=== PATIENT | female | born 1930 | race Caucasian/White ===

== ENCOUNTER 2016-12-04 14:59 | Inpatient (IN) | payer OTHER ==
--- NOTE | 2016-12-04 15:37 | CPEKG ---
Heart Rate: 68 RR Interval: 882 QRSD Interval: 88 QT Interval: 416 QTC Interval: 443 QRS [place]: 76 T Wave [place]: 34 EKG Severity - ABNORMAL ECG - EKG Impression: ATRIAL FIBRILLATION EKG Impression: PROBABLE LEFT VENTRICULAR HYPERTROPHY Electronically Signed By: Darian Pickering 04-Dec-2016 15:44:53
[2016-12-04] MEDS ORDERED: NS 500 ML IV ONE (15:40)
--- NOTE | 2016-12-04 15:44 | EDPHY ---
H & P Stated Complaint: afib Time Seen by Provider: 12/04/16 15:29 HPI/ROS: CHIEF COMPLAINT: Lightheaded HISTORY OF PRESENT ILLNESS: The patient is an 86-year-old female who comes with her daughter to the emergency department complaining of lightheadedness and feeling clammy and short of breath and dizzy when walking. The symptoms began this morning. She went to see her primary doctor pain who found her to be in atrial fibrillation and sent her to the emergency department. This is a new diagnosis. She does have a history of high blood pressure and takes diltiazem 3 times a day. She also has a history of hypertrophic cardiomyopathy , mitral valve insufficiency and asthma. She has never had any cardiac procedures. She has never had any coronary artery disease cancer or stroke. She denies chest pain or palpitations. REVIEW OF SYSTEMS: Constitutional: denies: chills, fever, recent illness, recent injury EENTM: denies: blurred vision, double vision, nose congestion Respiratory: denies: cough, shortness of breath Cardiac: Lightheaded, denies: chest pain, palpitations Gastrointestinal/Abdominal: denies: abdominal pain, diarrhea, nausea, vomiting, blood streaked stools Genitourinary: denies: dysuria, frequency, hematuria, pain Musculoskeletal: denies: joint pain, muscle pain Skin: denies: lesions, rash, jaundice, bruising Neurological: denies: headache, numbness, paresthesia, tingling, dizziness, weakness Hematologic/Lymphatic: denies: blood clots, easy bleeding, easy bruising Immunologic/allergic: denies: HIV/AIDS, transplant EXAM: GENERAL: Well-appearing, well-nourished and in no acute distress. HEAD: Atraumatic, normocephalic. EYES: Pupils equal round and reactive to light, extraocular movements intact, sclera anicteric, conjunctiva are normal. ENT: TMs normal, nares patent, oropharynx clear without exudates. Moist mucous membranes. NECK: Normal range of motion, supple without lymphadenopathy or JVD. LUNGS: Breath sounds clear to auscultation bilaterally and equal. No wheezes rales or rhonchi. HEART: Irregular heartbeat with loud murmur. ABDOMEN: Soft, nontender, normoactive bowel sounds. No guarding, no rebound. No masses appreciated. BACK: No CVA tenderness, no spinal tenderness, step-offs or deformities EXTREMITIES: Normal range of motion, no pitting or edema. No clubbing or cyanosis. NEUROLOGICAL: Cranial nerves II through XII grossly intact. Normal speech, normal gait. 5/5 strength, normal movement in all extremities, normal sensation PSYCH: Normal mood, normal affect. SKIN: Warm, dry, normal turgor, no visible rashes or lesions. Source: Patient Exam Limitations: No limitations - Personal History Current Tetanus Diphtheria and Acellular Pertussis (TDAP): Yes - Medical/Surgical History Hx Asthma: Yes Hx Chronic Respiratory Disease: No Hx Diabetes: No Hx Cardiac Disease: No Hx Renal Disease: No Hx Cirrhosis: No Hx Alcoholism: No Hx HIV/AIDS: No Hx Splenectomy or Spleen Trauma: No Other PMH: HYSTERECTOMY/MITRAL VALVE PROLAPSE, asthma, Hypertrophic Cardiomyopathy - Family History Significant Family History: No pertinent family hx - Social History Smoking Status: Never smoked Alcohol Use: None Drug Use: None Constitutional: Initial Vital Signs Temperature (C) 36.3 C 12/04/16 15:10 Heart Rate 73 12/04/16 15:10 Respiratory Rate 16 12/04/16 15:10 Blood Pressure 116/75 12/04/16 15:10 O2 Sat (%) 96 12/04/16 15:10 O2 Delivery Mode Room Air Allergies/Adverse Reactions: No Known Allergies Allergy (Unverified 11/01/15 10:34) Home Medications: Medication Instructions Recorded Fluticasone/Salmeter 250/50Mcg 1 puffs IH BID 08/23/10 [Advair 250/50 (*)] Montelukast Sodium [Singulair 10 10 mg PO DAILY@1800 08/23/10 mg (*)] Albuterol [Proventil Inhaler HFA 1 - 2 puffs IH DAILY PRN 11/01/15 (*)] Diltiazem [Cardizem 60 MG (*)] 60 mg PO BID 11/01/15 Alendronate Sodium [Fosamax 70 MG 70 mg PO SA@0700 12/04/16 (*)] Diltiazem [Cardizem 60 MG (*)] 90 mg PO DAILY@12 12/04/16 Herbals/Supplements -Info Only 1 ea PO DAILY 12/04/16 [place]-3 Fatty Acids [Fish Oil 1000 1,000 mg PO DAILY 12/04/16 mg (*)] Medical Decision Making - Diagnostics EKG Interpretation: An EKG obtained and was read and documented in trace view. Please see trace view for full reading and report. Atrial fibrillation rate of 68 LEFT VENTRICULAR HYPERTROPHY Imaging: X-ray: chest x-ray was obtained. I viewed the images myself on the PACS system. My interpretation of the images is: Cardiomegaly, unchanged from previous. The radiologist interpretation is pending. ED Course/Re-evaluation: 5:20 p.m. I discussed the case with Dr. Dereje Fuentes who will consult. Will admit to the hospital service. 5:45 p.m. I discussed the case with Dr. Luisa Archer who will admit to the medical service. Differential Diagnosis: Partial list of the Differential diagnosis considered include but were not limited to; atrial fibrillation, acute coronary disease, PE, infection and although unlikely based on the history and physical exam, I also considered CVA , dehydration, infection. Critical Care Time: Critical care time spent by me, Dr. Pickering exclusive with this patient was 35 minutes, exclusive of the PA time exclusive of procedures. The organ system that was at risk was cardiac/pulmonary and I gave IV fluids and blood thinners and multiple consultations to prevent worsening of the patient's condition - Data Points Laboratory Results: Laboratory Results 12/04/16 15:40 12/04/16 15:40 12/04/16 12/04/16 12/04/16 15:40 15:40 15:40 WBC 6.80 10^3/uL 10^3/uL (3.80-9.50) RBC 4.45 10^6/uL 10^6/uL (4.18-5.33) Hgb 14.0 g/dL g/dL (12.6-16.3) Hct 41.6 % % (38.0-47.0) MCV 93.5 fL fL (81.5-99.8) MCH 31.5 pg pg (27.9-34.1) MCHC 33.7 g/dL g/dL (32.4-36.7) RDW 13.8 % % (11.5-15.2) Plt Count 275 10^3/uL 10^3/uL (150-400) MPV 10.2 fL fL (8.7-11.7) Neut % (Auto) 60.0 % % (39.3-74.2) Lymph % (Auto) 27.9 % % (15.0-45.0) [place] % (Auto) 9.0 % % (4.5-13.0) Eos % (Auto) 2.1 % % (0.6-7.6) Baso % (Auto) 0.9 % % (0.3-1.7) Nucleat RBC Rel Count 0.0 % % (0.0-0.2) Absolute Neuts (auto) 4.08 10^3/uL 10^3/uL (1.70-6.50) Absolute Lymphs (auto) 1.90 10^3/uL 10^3/uL (1.00-3.00) Absolute Monos (auto) 0.61 10^3/uL 10^3/uL (0.30-0.80) Absolute Eos (auto) 0.14 10^3/uL 10^3/uL (0.03-0.40) Absolute Basos (auto) 0.06 10^3/uL 10^3/uL (0.02-0.10) Absolute Nucleated RBC 0.00 10^3/uL 10^3/uL (0-0.01) Immature Gran % 0.1 % % (0.0-1.1) Immature Gran # 0.01 10^3/uL 10^3/uL (0.00-0.10) PT 11.9 SEC L SEC (12.0-15.0) INR 0.89 (0.83-1.16) APTT 24.5 SEC SEC (23.0-38.0) D-Dimer 0.98 ug/mLFEU H ug/mLFEU (0.00-0.50) Sodium 134 mEq/L mEq/L (134-144) Potassium 4.2 mEq/L mEq/L (3.5-5.2) Chloride 103 mEq/L mEq/L (97-110) Carbon Dioxide 22 mEq/l mEq/l (22-31) Anion Gap 9 mEq/L mEq/L (8-16) BUN 14 mg/dL mg/dL (7-23) Creatinine 0.5 mg/dL L mg/dL (0.6-1.0) Estimated GFR > 60 Glucose 87 mg/dL mg/dL (70-100) Calcium 9.7 mg/dL mg/dL (8.5-10.4) Troponin I 0.075 ng/mL H ng/mL (0-0.034) Medications Given: Discontinued Medications Heparin Sodium (Porcine) (Heparin Injection) 0 unit IVP EDNOW ONE PRN Reason: Protocol Stop: 12/04/16 17:14 Last Admin: 12/04/16 17:57 Dose: 3,000 units Sodium Chloride (Ns) 500 mls @ 0 mls/hr IV ONCE ONE PRN Reason: As Directed Stop: 12/04/16 15:41 Last Admin: 12/04/16 17:00 Dose: 500 mls Heparin Sodium (Porcine) (Heparin 50 Units/Ml (Premix)) 500 mls @ 0 mls/hr IV EDNOW ONE; Per Protocol PRN Reason: Protocol Stop: 12/04/16 17:14 Last Admin: 12/04/16 17:45 Dose: 500 mls Departure - Departure Disposition: [facility] Inpatient Acute Clinical Impression: Atrial fibrillation Qualifiers: Atrial fibrillation type: unspecified Qualified Code(s): I48.91 - Unspecified atrial fibrillation Condition: Fair
[2016-12-04 16:00] LABS: % IMMATURE GRANULYOCYTES 0.1 % (0.0-1.1); ABSOLUTE IMMATURE GRANULOCYTES 0.01 10^3/uL (0.00-0.10); ADD DIFF? NO; ADD MORPH? NO; ADD SCAN? NO; ATYPICAL LYMPHOCYTE FLAG 30 (0-99); FRAGMENT RBC FLAG 0 (0-99); HEMATOCRIT 41.6 % (38.0-47.0); LEFT SHIFT FLG 0 (0-99); LIPEMIA HEMOLYSIS FLAG 80 (0-99); MEAN CELL HEMOGLOBIN 31.5 pg (27.9-34.1); MEAN CELL HEMOGLOBIN CONCENTR. 33.7 g/dL (32.4-36.7); MEAN CELL VOLUME 93.5 fL (81.5-99.8); MEAN PLATELET VOLUME 10.2 fL (8.7-11.7); PLATELET CLUMPS FLAG 10 (0-99); PLATELET COUNT 275 10^3/uL (150-400); RED BLOOD CELL COUNT 4.45 10^6/uL (4.18-5.33); RED CELL DISTRIBUTION WIDTH 13.8 % (11.5-15.2)
[2016-12-04 16:04] LABS: INR 0.89 (0.83-1.16); PROTIME(PATIENT) 11.9 SEC (12.0-15.0)
[2016-12-04 16:05] LABS: APTT 24.5 SEC (23.0-38.0)
[2016-12-04 16:08] LABS: ANION GAP 9 mEq/L (8-16); CALCIUM 9.7 mg/dL (8.5-10.4); CARBON DIOXIDE 22 mEq/l (22-31); CHLORIDE 103 mEq/L (97-110); CREATININE 0.5 mg/dL (0.6-1.0); GLOMERULAR FILTRATION RATE > 60; GLUCOSE 87 mg/dL (70-100); POTASSIUM 4.2 mEq/L (3.5-5.2); SODIUM 134 mEq/L (134-144)
[2016-12-04 16:19] LABS: TROPONIN I 0.075 ng/mL (0-0.034)
[2016-12-04] MEDS ORDERED: HEPARIN/DEXTROSE 500 ML IV ONE (17:13)
[2016-12-04] MEDS ORDERED: HEPARIN 10,000 UNIT/10 ML MDV IVP ONE (17:13)
[2016-12-04] MEDS ORDERED: HEPARIN 10,000 UNIT/10 ML MDV IVP PRN (18:07)
[2016-12-04] MEDS ORDERED: ONDANSETRON 4 MG/2 ML VIAL IVP PRN (18:09)
[2016-12-04] MEDS ORDERED: ACETAMINOPHEN 325 MG TAB PO PRN (18:09)
[2016-12-04] MEDS ORDERED: NS 1,000 ML IV SCH (18:15)
[2016-12-04] MEDS ORDERED: ALBUTEROL 60 PUFFS/8 GM MDI IH PRN (18:28)
[2016-12-04] MEDS ORDERED: HEPARIN/DEXTROSE 500 ML IV SCH (18:30)
--- NOTE | 2016-12-04 18:54 | GHP ---
[f rep st] HISTORY AND PHYSICAL DATE OF ADMISSION: 12/04/2016 CHIEF COMPLAINT: Dizziness. HISTORY: The patient is an 86-year-old female who felt very dizzy this morning going to the [facility]. She was weak and clammy. She denies any chest pain or shortness of breath. She saw her primary care doctor complaining of these issues. She attributes it to getting over a cold which has caused extreme coughing fits. Primary care doctor did an EKG, found her to be in new onset atrial fibrill ation and sent her to the emergency room. She is currently feeling quite well. PAST MEDICAL HISTORY: 1. Hypertrophic cardiomyopathy, following with Dr. Gray. 2. Asthma. 3. Mitral regurgitation. PAST SURGICAL HISTORY: Hysterectomy. MEDICATIONS: Please see computer record for full detailed list. ALLERGIES: No known drug allergies. SOCIAL HISTORY: No smoking. No alcohol. She lives alone. REVIEW OF SYSTEMS: Complete review of systems obtained. Review of systems negative regarding const itutional, HEENT, GI, pulmonary, cardiovascular, , hematology, skin, musculoskeletal, endocrine an d psychiatric, except for positives as noted in HPI. FAMILY HISTORY: She denies a known family history of hypertrophic cardiomyopathy or sudden cardiac . PHYSICAL EXAMINATION: GENERAL: Well-developed, well-nourished female in no acute distress. VITAL SIGNS: Temperature is 36.3, pulse 83, blood pressure 109/70, saturating 95% on room air. EYES: No rmal conjunctivae. Pupils equal and reactive to light. ENT: Normal ears and nose. Hearing intact . Normal lips and teeth. Oropharynx moist. NECK: Trachea midline. No thyromegaly. CHEST: Norm al respiratory effort. LUNGS: Clear to auscultation bilaterally. CARDIOVASCULAR SYSTEMS: Irregul bree irregular with murmur at the apex. No lower extremity edema. ABDOMEN: Soft, nontender. No h epatosplenomegaly. SKIN: Warm, dry, intact without rash. MUSCULOSKELETAL: No cyanosis or clubbin g. Strength 5/5 upper and lower extremities. NEUROLOGIC: Cranial nerves intact. Normal sensation to light touch. PSYCH: Alert and oriented x3. Normal mood and affect. Normal judgment and insig ht. Normal memory. LABS: White count 6.8, hematocrit 41.6, platelets 275. Sodium 139, potassium 4.2, chloride 103, bi carb 22, BUN 14, creatinine 0.5, glucose 87. Troponin 0.075. Chest x-ray is negative. EKG shows a trial flutter with LVH with a normal rate. This case was discussed with Dr. Pickering. He has spoken to Dr. Fuentes. They will consult in the morning. ASSESSMENT/PLAN: 1. New onset atrial fibrillation. She does not have any rapid rates as she is on oral diltiazem ch ronically for blood pressure control. She does have new symptoms, however, so I query whether this atrial fibrillation may be symptomatic despite the controlled rate and cardioversion could be consid ered. We will start her on IV heparin. Cardiology will see her in the morning. 2. Hypertrophic cardiomyopathy. I will recheck an echocardiogram. 3. Troponin elevation. We will follow serial troponins. Perhaps coronary ischemia could cause her new symptoms. We will check a lipid panel in the morning. We will make her n.p.o. after midnight and await Cardiology evaluation in the morning regarding whether they want to do anything regarding an ischemic evaluation. We will also check a D-dimer and rule out pulmonary embolus if positive. 4. Asthma. This is stable. We will continue Advair. CODE STATUS: Full. ADMISSION STATUS: We will admit to observation, as depending on clinical course she might be able g o home tomorrow. DVT PROPHYLAXIS: She is high risk, we will place on subcu Lovenox. /[id number]/MODL
[2016-12-04] MEDS: FLUTICASONE/SALMETER 250/50MCG DISKUS IH SCH (20:29)
[2016-12-04] MEDS: DILTIAZEM 60 MG TAB PO SCH (20:54)
[2016-12-05 06:52] LABS: % IMMATURE GRANULYOCYTES 0.5 % (0.0-1.1); ABSOLUTE IMMATURE GRANULOCYTES 0.03 10^3/uL (0.00-0.10); ADD DIFF? NO; ADD MORPH? NO; ADD SCAN? NO; ATYPICAL LYMPHOCYTE FLAG 30 (0-99); FRAGMENT RBC FLAG 0 (0-99); HEMATOCRIT 36.7 % (38.0-47.0); HEMOGLOBIN 12.6 g/dL (12.6-16.3); LEFT SHIFT FLG 0 (0-99); LIPEMIA HEMOLYSIS FLAG 90 (0-99); MEAN CELL HEMOGLOBIN 31.5 pg (27.9-34.1); MEAN CELL HEMOGLOBIN CONCENTR. 34.3 g/dL (32.4-36.7); MEAN CELL VOLUME 91.8 fL (81.5-99.8); MEAN PLATELET VOLUME 10.4 fL (8.7-11.7); PLATELET CLUMPS FLAG 10 (0-99); PLATELET COUNT 247 10^3/uL (150-400); RED CELL DISTRIBUTION WIDTH 13.8 % (11.5-15.2)
[2016-12-05 07:02] LABS: ANION GAP 7 mEq/L (8-16); CALCIUM 7.8 mg/dL (8.5-10.4); CARBON DIOXIDE 24 mEq/l (22-31); CHLORIDE 108 mEq/L (97-110); CHOLESTEROL 148 mg/dL (140-220); CHOLESTEROL/HDL RATIO 2.79 RATIO (1.00-4.44); CREATININE 0.6 mg/dL (0.6-1.0); GLOMERULAR FILTRATION RATE > 60; GLUCOSE 84 mg/dL (70-100); HIGH DENSITY LIPOPROTEIN 53 mg/dL (40-85); LOW DENSITY LIPOPROTEIN 85 mg/dL (80-100); NON-HIGH DENSITY LIPOPROTEIN 95 mg/dL (90-129); POTASSIUM 3.7 mEq/L (3.5-5.2); SODIUM 139 mEq/L (134-144); TRIGLYCERIDE 53 mg/dL (35-135); VERY LOW DENSITY LIPOPROTEINS 10 mg/dL (8-25)
[2016-12-05 07:12] LABS: TROPONIN I 0.045 ng/mL (0-0.034)
--- NOTE | 2016-12-05 08:54 | CPEKG ---
Heart Rate: 70 RR Interval: 857 QRSD Interval: 82 QT Interval: 388 QTC Interval: 419 QRS [place]: 68 EKG Severity - ABNORMAL ECG - EKG Impression: ATRIAL FIBRILLATION EKG Impression: LOW VOLTAGE IN FRONTAL LEADS EKG Impression: CONSIDER LEFT VENTRICULAR HYPERTROPHY EKG Impression: BORDERLINE T ABNORMALITIES, DIFFUSE LEADS EKG Impression: No significant change from December 04, 2016 Electronically Signed By: Bharath Alexandra 05-Dec-2016 12:25:49
[2016-12-05] MEDS ORDERED: ENOXAPARIN 40 MG/0.4 ML SYR SC SCH (09:00)
[2016-12-05] MEDS: FLUTICASONE/SALMETER 250/50MCG DISKUS IH SCH ×2 (09:39→21:43)
[2016-12-05] MEDS: ASPIRIN EC 81 MG TAB PO SCH (09:50)
[2016-12-05] MEDS: DILTIAZEM 60 MG TAB PO SCH ×3 (09:50→21:41)
--- NOTE | 2016-12-05 10:22 | PDCARCONS ---
Cardiology Consult Reason for Consult: new onset atrial fibrillation Chief Complaint: feeling yucky Requesting Physician: Gianni History of Present Illness: 86-year-old female followed by my practice history of hypertrophic cardiomyopathy with mitral regurgitation admitted with 1st onset of atrial fibrillation. Patient was in her usual state of good health until about 2 weeks ago. She had a cold characterized by a cough productive of clear /yellow sputum. She was diagnosed with a bronchitic attack. She was seen by her daughter and looked cold clammy and in poor health. She was taken to Dr. Ochoa office. Clinical examination they revealed new onset of atrial fibrillation and she is brought to the hospital for further evaluation This morning she is feeling okay. She continues to have a chronic cough. She is having no palpitations. She has had no syncope or near syncope. She denies chest pain PND orthopnea. Patient has had longstanding hypertension which has been well managed with diltiazem. Last assessment of her hypertrophic disease in the computer was in 2009 at that time she had severe mitral regurgitation moderate tricuspid regurgitation with borderline pulmonary artery pressures. She had outflow tract gradient of 50 mm of mercury. She has had no clinical heart failure. She has had no ischemic events. She denies prior history of atrial fibrillation. Ambulatory Orders Fluticasone/Salmeter 250/50Mcg [Advair 250/50 (*)] 1 puffs IH BID 08/23/10 Montelukast Sodium [Singulair 10 mg (*)] 10 mg PO DAILY@1800 08/23/10 Albuterol [Proventil Inhaler HFA (*)] 1 - 2 puffs IH DAILY PRN 11/01/15 Diltiazem [Cardizem 60 MG (*)] 60 mg PO BID 11/01/15 Alendronate Sodium [Fosamax 70 MG (*)] 70 mg PO SA@0700 12/04/16 Diltiazem [Cardizem 60 MG (*)] 90 mg PO DAILY@12 12/04/16 Herbals/Supplements -Info Only 1 ea PO DAILY 12/04/16 [place]-3 Fatty Acids [Fish Oil 1000 mg (*)] 1,000 mg PO DAILY 12/04/16 History Information - Allergies/Home Medication List Allergies/Adverse Reactions: No Known Allergies Allergy (Unverified 11/01/15 10:34) Home Medications: Fluticasone/Salmeter 250/50Mcg [Advair 250/50 (*)] 1 puffs IH BID 08/23/10 [ Last Taken 12/03/16] Montelukast Sodium [Singulair 10 mg (*)] 10 mg PO DAILY@1800 08/23/10 [Last Taken 12/03/16] Albuterol [Proventil Inhaler HFA (*)] 1 - 2 puffs IH DAILY PRN 11/01/15 [Last Taken Unknown] Diltiazem [Cardizem 60 MG (*)] 60 mg PO BID 11/01/15 [Last Taken 12/04/16 09:00] Alendronate Sodium [Fosamax 70 MG (*)] 70 mg PO SA@0700 12/04/16 [Last Taken ] Diltiazem [Cardizem 60 MG (*)] 90 mg PO DAILY@12 12/04/16 [Last Taken 12/04/16] Herbals/Supplements -Info Only 1 ea PO DAILY 12/04/16 [Last Taken Unknown] [place]-3 Fatty Acids [Fish Oil 1000 mg (*)] 1,000 mg PO DAILY 12/04/16 [Last Taken Unknown] I have personally reviewed and updated: family history, medical history, social history, surgical history - Surgical History Reports: hysterectomy - Family History Positive for: non-pertinent (She has 9 children. 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 She continues to drive and live independently.) - Social History Smoking Status: Never smoked Alcohol Use: None Drug Use: None REED Risk Evaluation greater or equal to 3 CAD risk factors: no known CAD(stenosis greater or eqaul to 50%): no ASA use in past 7 days: no severe angina(greater or equal to 2 episodes in 24hrs): no EKG ST changes greater or equal to 0.5mm: no positive cardiac marker: yes Age in Years: 75 or older Sex: Female Congestive Heart Failure History: No Hypertension History: Yes Stroke/TIA/Thromboembolism History: No Vascular Disease History: No Diabetes Mellitus: No [id number] Score: 5z Physical Exam Temp Pulse Resp BP Pulse Ox 36.9 C 67 18 138/94 H 93 12/05/16 08:00 12/05/16 08:00 12/05/16 09:40 12/05/16 08:00 12/05/16 08:00 Constitutional: no apparent distress, cachectic Eyes: PERRL, anicteric sclera Ears, Nose, Mouth, Throat: moist mucous membranes, hearing normal Cardiovascular: systolic murmur, irregularly irregular, edema Peripheral Pulses: 1+: carotid (R), carotid (L), 2+: femoral (R), femoral (L) Respiratory: reduced air movement, expiratory wheeze, rhonchi Gastrointestinal: normoactive bowel sounds, soft, non-tender abdomen, no palpable masses Genitourinary: no bladder fullness Skin: warm Musculoskeletal: full muscle strength, no muscle tenderness Neurologic: AAOx3, No weakness Psychiatric: interacting appropriately, not anxious Lymph, Heme, Immunologic: no cervical LAD, no supraclavicular LAD Lab and Imaging 12/05/16 06:30 12/05/16 06:30 WBC 5.89 10^3/uL (3.80-9.50) 12/05/16 06:30 RBC 4.00 10^6/uL (4.18-5.33) L 12/05/16 06:30 Hgb 12.6 g/dL (12.6-16.3) 12/05/16 06:30 Hct 36.7 % (38.0-47.0) L 12/05/16 06:30 MCV 91.8 fL (81.5-99.8) 12/05/16 06:30 MCH 31.5 pg (27.9-34.1) 12/05/16 06:30 MCHC 34.3 g/dL (32.4-36.7) 12/05/16 06:30 RDW 13.8 % (11.5-15.2) 12/05/16 06:30 Plt Count 247 10^3/uL (150-400) 12/05/16 06:30 MPV 10.4 fL (8.7-11.7) 12/05/16 06:30 Neut % (Auto) 54.6 % (39.3-74.2) 12/05/16 06:30 Lymph % (Auto) 31.1 % (15.0-45.0) 12/05/16 06:30 [place] % (Auto) 9.8 % (4.5-13.0) 12/05/16 06:30 Eos % (Auto) 3.2 % (0.6-7.6) 12/05/16 06:30 Baso % (Auto) 0.8 % (0.3-1.7) 12/05/16 06:30 Nucleat RBC Rel Count 0.0 % (0.0-0.2) 12/05/16 06:30 Absolute Neuts (auto) 3.21 10^3/uL (1.70-6.50) 12/05/16 06:30 Absolute Lymphs (auto) 1.83 10^3/uL (1.00-3.00) 12/05/16 06:30 Absolute Monos (auto) 0.58 10^3/uL (0.30-0.80) 12/05/16 06:30 Absolute Eos (auto) 0.19 10^3/uL (0.03-0.40) 12/05/16 06:30 Absolute Basos (auto) 0.05 10^3/uL (0.02-0.10) 12/05/16 06:30 Absolute Nucleated RBC 0.00 10^3/uL (0-0.01) 12/05/16 06:30 Immature Gran % 0.5 % (0.0-1.1) 12/05/16 06:30 Immature Gran # 0.03 10^3/uL (0.00-0.10) 12/05/16 06:30 PT 11.9 SEC (12.0-15.0) L 12/04/16 15:40 INR 0.89 (0.83-1.16) 12/04/16 15:40 APTT 24.5 SEC (23.0-38.0) 12/04/16 15:40 D-Dimer 0.98 ug/mLFEU (0.00-0.50) H 12/04/16 15:40 Heparin Anti-Xa, Unfract 0.51 IU/mL (0.32-0.67) 12/05/16 06:30 Sodium 139 mEq/L (134-144) 12/05/16 06:30 Potassium 3.7 mEq/L (3.5-5.2) 12/05/16 06:30 Chloride 108 mEq/L (97-110) 12/05/16 06:30 Carbon Dioxide 24 mEq/l (22-31) 12/05/16 06:30 Anion Gap 7 mEq/L (8-16) L 12/05/16 06:30 BUN 11 mg/dL (7-23) 12/05/16 06:30 Creatinine 0.6 mg/dL (0.6-1.0) 12/05/16 06:30 Estimated GFR > 60 12/05/16 06:30 Glucose 84 mg/dL (70-100) 12/05/16 06:30 Calcium 7.8 mg/dL (8.5-10.4) L D 12/05/16 06:30 Troponin I 0.045 ng/mL (0-0.034) H 12/05/16 06:30 Triglycerides 53 mg/dL (35-135) 12/05/16 06:30 Cholesterol 148 mg/dL (140-220) 12/05/16 06:30 Cholesterol Risk Factr 0.5 (0.2-1.0) 12/05/16 06:30 LDL Cholesterol, Calc 85 mg/dL (80-100) 12/05/16 06:30 LDL Risk Factor 0.6 (0.2-1.0) 12/05/16 06:30 VLDL Cholesterol 10 mg/dL (8-25) 12/05/16 06:30 Non-HDL Cholesterol 95 mg/dL (90-129) 12/05/16 06:30 HDL Cholesterol 53 mg/dL (40-85) 12/05/16 06:30 LDL/HDL Ratio 1.60 RATIO (1.00-3.22) 12/05/16 06:30 Cholesterol/HDL Ratio 2.79 RATIO (1.00-4.44) 12/05/16 06:30 TSH 2.530 uIU/mL (0.465-4.680) 12/05/16 06:30 Laboratory Tests 12/04/16 12/05/16 12/05/16 15:40 00:00 06:30 Creatinine 0.5 L 0.6 Troponin I 0.075 H 0.045 H 0.045 H TSH 2.530 Visualized and Interpreted Chest x-ray results: Yes Chest X-ray Interpretation: no infiltrate, normal heart size Visualized and Interpreted EKG results: Yes EKG additional interpertation: Atrial fibrillation with controlled ventricular response. No acute ST-T changes concerning for ischemia A/P Assessment: impression: 86-year-old female with new onset atrial fibrillation in the setting of known significant valvular heart disease characterized by severe mitral regurgitation outflow tract gradient and atrial enlargement. This is associated with a slight elevation in troponin. There are no EKG changes concerning for an acute ischemic event. Thyroid status is normal. Recent viral bronchitis likely etiology of atrial fibrillation in the setting of known valvular heart disease and hypertension. Based on age patient also has underlying CAD. At the present time she is tolerating it well without chest pain, syncope, near syncope. Plan: 1. High risk for CVA in the setting of atrial fibrillation. Aggressive anticoagulation. Would begin novel agent Eliquis 5 mg p. o. twice daily. 2. Currently rate controlled on diltiazem. 3. Allow 48 hours for spontaneous cardioversion. 4. Discuss options for further evaluation including right left heart catheterization and ALIE with consideration for surgical repair versus continued watchful waiting. No indication for ALIE cardioversion at this time. Based on age and other comorbidities would favor conservative approach with anticoagulation for at least 3 weeks before active cardioversion. Past Medical History - Personal History Current Tetanus Diphtheria and Acellular Pertussis (TDAP): Yes - Medical/Surgical History Hx Asthma: Yes Hx Chronic Respiratory Disease: No Hx Cardiac Disease: No Hx Diabetes: No Hx Renal Disease: No Hx Alcoholism: No Hx Cirrhosis: No Hx HIV/AIDS: No Hx Splenectomy or Spleen Trauma: No Other PMH: HYSTERECTOMY/MITRAL VALVE PROLAPSE, asthma, Hypertrophic Cardiomyopathy - Family History Significant Family History: No pertinent family hx - Social History Smoking Status: Never smoked Review of Systems - Review of Systems Constitutional: malaise, weakness. denies: chills, fever EENTM: no symptoms reported Respiratory: cough Cardiac: edema. denies: chest pain, irregular heart rate, lightheadedness, palpitations, syncope Gastrointestinal/Abdominal: no symptoms reported Genitourinary: no symptoms Musculoskelatal: no symptoms Skin: no symptoms Hematologic/Lymphatic: no symptoms reported Immunologic/allergic: no symptoms reported
--- NOTE | 2016-12-05 10:43 | ECHO ---
[id number] + + [address] : : [place] [address] : : [phone] + Adult Echocardiographic Report + -------+ :Name: PHYLLIS MUÑOZ DStudy Date: 12/05/2016 07:36 AM : : Hospital Admission Number: [id number] Locati on: 216: :: 1930 Gender: Female Height: 64 in : :Age: 86 yrs Race: WH Weight: 110 lb : :Reason For Study: Atrial flutter : : BSA: 1.5 meter s2 : + -------+ MMode/2D Measurements \T\ Calculations IVSd: 1.5 cm LVIDd: 3.7 cm FS: 44.1 % MV Diam: 3.5 cm LVPWd: 0.95 cm LVIDs: 2.1 cm EDV(Teich): 57.2 ml ESV(Teich): 13.6 ml EF(Teich): 76.2 % Ao root diam: LVOT diam: 1.9 cmLVLd ap4: 5.9 cm SV(MOD-sp4): 3.3 cm LVOT area: EDV(MOD-sp4): 28.0 ml LA dimension: 2.9 cm2 37.0 ml 3.8 cm LVLs ap4: 4.6 cm ESV(MOD-sp4): 9.0 ml EF(MOD-sp4): 75.7 % Normal Measurement Values: + + :LVIDd (3.5-5.7cm) IVSd (0.6-1.1cm) LVPWd (0.6-1.1cm) Aortic Root (2.0-3.7cm)Left Atrium (1.5-4.0cm): :LV Vol(d) (76-115ml) LV Vol(s) (29-48ml) Ejec Fraction (50-65%)PV Kendall (0.6- 1.2m/s) TV Kendall (0.4-1.0m/s) : :MV E Kendall (0.8-1.0m/s)MV A Kendall (0.3-1.0m/s)LVOT Kendall (0.7-1.2m/s) Asc Ao Kendall ( 0.9-1.8m/s) : + + Doppler Measurements \T\ Calculations MV E max kendall: MV V2 mean: Ao mean PG: MR max kendall: 111.1 cm/sec 61.6 cm/sec 8.9 mmHg 287.8 cm/sec MV mean P.9 mmHgAo V2 mean: MR max PG: MV V2 VTI: 22.3 cm 142.2 cm/sec 63.8 mmHg MV area (1 diam): Ao V2 VTI: 36.0 cm 9.7 cm2 MV Flow area(1diam): 9.7 cm2 SV(MV 1 diam): TR max kendall: RF(MV,Ao)(1 diam): 217.2 ml 245.7 cm/sec -0.44 SI(MV 1 diam): TR max P.1 mmHg 143.2 ml/m2 RAP systole: 10.0 mmHg RVSP(TR): 34.1 mmHg Left Ventricle The left ventricle is normal in size. There is moderate asymmetric left ventricular hypertrophy. The left ventricle is hyperdynamic. Ejection Fraction = 70-75%. No regional wall motion abnormalities noted. Right Ventricle The right ventricle is normal in size and function. Atria The left atrium is severely dilated. The right atrium is mild to moderately dilated. The interatrial septum is intact with no evidence for an atrial septal defect. Mitral Valve There is systolic anterior motion of the mitral valve. There is no evidence of mitral valve prolapse. There is no mitral valve stenosis. There is moderate mitral regurgitation. Tricuspid Valve Normal tricuspid valve. There is moderate tricuspid regurgitation. Right ventricular systolic pressure is normal. Aortic Valve The aortic valve is trileaflet. Moderate to severe AV calcification. Mild subvalvular aortic stenosis. Borderline aortic stenosis. Trace aortic regurgitation. Pulmonic Valve The pulmonic valve is normal in structure and function. There is no pulmonic valvular regurgitation. Great Vessels The aortic root is normal size. Pericardium/Pleural There is no pericardial effusion. Conclusion A complete two-dimensional transthoracic echocardiogram was performed (2D, M-mode, Doppler and color flow Doppler). Previous echo done at [facility] 07/24. There is moderate asymmetric left ventricular hypertrophy. The left ventricle is hyperdynamic. Ejection Fraction = 70-75%. The left atrium is severely dilated. The right atrium is mild to moderately dilated. There is systolic anterior motion of the mitral valve. There is moderate mitral regurgitation. There is moderate tricuspid regurgitation. Right ventricular systolic pressure is normal. Moderate to severe AV calcification. Mild subvalvular aortic stenosis. Borderline aortic stenosis. Trace aortic regurgitation. Final Reading Physician: Esha Solo signed on 12/05/2016 10:41 AM Ordering Physician: Luisa Archer Performed By: Taya Fierro RDCS
[2016-12-05] MEDS: APIXABAN 2.5 MG TAB PO SCH ×2 (11:46→21:40)
--- NOTE | 2016-12-05 15:22 | HOSPPROG ---
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 if there could be coronary disease as well At this point the patient does not have acute heart failure, and has not been having any angina symptoms. Her stroke risk is high and anticoagulation is clearly indicated. She does not have previous anticoagulation so trying to perform a electrical cardioversion now would have some increased stroke risk. She is not in heart failure it is very reasonable to anticoagulate her and consider cardioversion if she is not spontaneously cardioverted over 3 weeks or thereabouts. PLANS: -Anurag started -follow her heart rate for stability here -follow lunchroom monitor for any spontaneous cardioversion -will review further with Dr. Fuentes -DVT prophylaxis with full-dose anticoagulation as above SUBJECTIVE: She still feels somewhat weak and tired but is able to get up and walk around. She still has a bit of a cough and is mildly dyspneic. 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, my review: Rate controlled atrial fibrillation Exam: alert oriented skin warm dry color ok no jvd resps not labored lungs clear BSs heart irregular abd soft nondistended nontender, bowel sounds present limbs warm, no edema iv site ok Laboratory data: Troponins are lower but remained in the indeterminate elevation range Other lab stable echocardiogram with moderate MR and TR, severe left atrial dilation but good ejection fraction at 75% Repeat EKG showing rate controlled atrial fibrillation without any definite ischemic changes Objective: Vital Signs Temp Pulse Resp BP Pulse Ox 36.8 C 107 H 18 120/87 H 97 12/05/16 11:48 12/05/16 11:48 12/05/16 11:48 12/05/16 11:48 12/05/16 11:48 Laboratory Results 12/05/16 06:30 12/05/16 06:30 12/04/16 12/05/16 12/06/16 06:59 06:59 06:59 Intake Total 1921 Balance 1921 PT 11.9 SEC (12.0-15.0) L 12/04/16 15:40 INR 0.89 (0.83-1.16) 12/04/16 15:40 ICD10 Worksheet Patient Problems: Problems Problem Status Onset Atrial fibrillation Acute
[2016-12-05] MEDS: MONTELUKAST SODIUM 10 MG TAB PO SCH (18:24)
[2016-12-06] MEDS: ASPIRIN EC 81 MG TAB PO SCH (08:33)
[2016-12-06] MEDS: APIXABAN 2.5 MG TAB PO SCH ×2 (08:33→19:54)
[2016-12-06] MEDS: DILTIAZEM 60 MG TAB PO SCH ×2 (08:33→12:03)
[2016-12-06] MEDS: FLUTICASONE/SALMETER 250/50MCG DISKUS IH SCH ×2 (09:02→21:05)
--- NOTE | 2016-12-06 16:47 | HOSPPROG ---
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 Her stroke risk is high and anticoagulation is clearly indicated. She does not have previous anticoagulation so trying to perform a electrical cardioversion now would have some increased stroke risk. She is not in heart failure it is very reasonable to anticoagulate her and consider cardioversion if she is not spontaneously cardioverted over 3 weeks or thereabouts. In terms of heart rate control with average heart rates to the 1st several hours of today in the 130 range she will need increased rate control medication and she certainly needs a simpler regimen to follow. However will have to be careful as she has had some lower heart rates as well. It is possible that in the end she could need a change to a different medication or even consideration for pacemaker placement. I have reviewed her progress and plans in detail today with Dr. Dereje Fuentes. PLANS: -Anurag started -continue to follow her heart rate for stability here -follow manager monitoring for any spontaneous cardioversion -will change her diltiazem to 90 mg four times daily and consider changing to 240-360 once a day orally depending on her response. We will need to watch for bradycardia which could be an indication for pacemaker or change to a different medicine -DVT prophylaxis with full-dose anticoagulation as above SUBJECTIVE: She still feels somewhat weak and tired but is able to get up and walk around, essentially unchanged from yesterday. Almost no cough now and has no angina or palpitations. She is having what she feels is baseline exertional dyspnea which is mildly debilitating at least. 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, my review: Atrial fibrillation with significant fluctuation and heart rate over time Exam: alert oriented skin warm dry color ok no jvd resps not labored lungs clear BSs heart irregular abd soft nondistended nontender, bowel sounds present limbs warm, no edema iv site ok Laboratory data: Troponins are lower but remained in the indeterminate elevation range Other lab stable echocardiogram with moderate MR and TR, severe left atrial dilation but good ejection fraction at 75% Repeat EKG showing rate controlled atrial fibrillation without any definite ischemic changes Objective: Vital Signs Temp Pulse Resp BP Pulse Ox 36.4 C 61 16 112/73 94 12/06/16 15:30 12/06/16 15:30 12/06/16 15:30 12/06/16 15:30 12/06/16 15:30 12/05/16 12/06/16 12/07/16 06:59 06:59 06:59 Intake Total 1240 610 Balance 1240 610 PT 11.9 SEC (12.0-15.0) L 12/04/16 15:40 INR 0.89 (0.83-1.16) 12/04/16 15:40 ICD10 Worksheet Patient Problems: Problems Problem Status Onset Atrial fibrillation Acute
[2016-12-06] MEDS: DILTIAZEM 30 MG TAB PO SCH (17:27)
[2016-12-06] MEDS: MONTELUKAST SODIUM 10 MG TAB PO SCH (17:28)
[2016-12-07] MEDS: DILTIAZEM 30 MG TAB PO SCH ×3 (00:15→12:52)
[2016-12-07 07:53] VITALS: O2SAT 93
[2016-12-07] MEDS: ASPIRIN EC 81 MG TAB PO SCH (08:11)
[2016-12-07] MEDS: APIXABAN 2.5 MG TAB PO SCH (08:11)
[2016-12-07] MEDS: FLUTICASONE/SALMETER 250/50MCG DISKUS IH SCH (10:03)
[2016-12-07 11:45] VITALS: BP 101/70; PULSE 80; RESP 17; TEMP 98
--- NOTE | 2016-12-07 15:50 | PDIAF ---
- Diagnosis Diagnosis: atrial fibrillation, copd Code Status: Full Code - Medication Management Discharge Medications: Medications to Continue on Transfer Fluticasone/Salmeter 250/50Mcg [Advair 250/50 (*)] 1 puffs IH BID 08/23/10 [ Last Taken 12/03/16] Montelukast Sodium [Singulair 10 mg (*)] 10 mg PO DAILY@1800 08/23/10 [Last Taken 12/03/16] Albuterol [Proventil Inhaler HFA (*)] 1 - 2 puffs IH DAILY PRN 11/01/15 [Last Taken Unknown] Alendronate Sodium [Fosamax 70 MG (*)] 70 mg PO SA@0700 12/04/16 [Last Taken ] Herbals/Supplements -Info Only 1 ea PO DAILY 12/04/16 [Last Taken Unknown] [place]-3 Fatty Acids [Fish Oil 1000 mg (*)] 1,000 mg PO DAILY 12/04/16 [Last Taken Unknown] Apixaban [Eliquis] 2.5 mg PO BID #60 tab 12/07/16 [Last Taken Unknown] Aspirin EC [Aspirin EC 81 mg (*)] 81 mg PO DAILY #0 tab 12/07/16 [Last Taken Unknown] Diltiazem HCl 3 tab PO TID #270 tablet 12/07/16 [Last Taken Unknown] Discharge Medications: Refer to the Discharge Home Medication list for PRN reason. - Orders Services needed: Home Care, Registered Nurse Home Care Face to Face: I certify that this patient was under my care and that I had the required [id number] encounter meeting the encounter requirements on the discharge day. My findings support the fact that the patient is homebound as defined in CMS Chapter 7 Medicare Benefits Manual 30.1.1, The condition of the patient is such that there exists a normal inability to leave home and consequently, leaving home would require a considerable and taxing effort. Diet Recommendation: no restrictions on diet Diet Texture: Regular Texture Diet - Follow Up Care Current Providers and Referrals: James Gray MD [Medical Doctor] -
== END 2016-12-07 15:43 | disposition home health service (06) | DRG 310 ==
LOC: F2W 20:01 → OBSVTOIN 12-05 17:36
PROVIDERS: ADMIT Internal Medicine; ATTEND Internal Medicine
DX: I48.91 Unspecified atrial fibrillation (principal); I42.2 Other hypertrophic cardiomyopathy; I34.0 Nonrheumatic mitral (valve) insufficiency; J45.909 Unspecified asthma, uncomplicated
CPT/HCPCS: 85520-90; 96365; 97161-GP; G0378; G8978-GP-CH; G8979-GP-CH; G8980-GP-CH; J1644

== ENCOUNTER 2016-12-12 13:09 | Observation (INO) | payer OTHER ==
[2016-12-12] MEDS ORDERED: BENZOCAINE UNIT DOSE SPRAY HURRICAINE MM ONE (13:15)
[2016-12-12] MEDS ORDERED: PROPOFOL 200 MG/20 ML VIAL IVP ONE (13:15)
[2016-12-12] MEDS ORDERED: fentaNYL 100 MCG/2 ML INJ IVP ONE (13:15)
[2016-12-12] MEDS ORDERED: MIDAZOLAM 2 MG/2 ML VIAL IVP ONE (13:15)
[2016-12-12] MEDS ORDERED: NS 500 ML IV ONE (13:15)
[2016-12-12] MEDS ORDERED: ETOMIDATE 20 MG/10 ML VIAL IVP ONE (13:15)
--- NOTE | 2016-12-12 13:38 | CPEKG ---
Heart Rate: 68 RR Interval: 882 QRSD Interval: 90 QT Interval: 388 QTC Interval: 413 QRS [place]: 94 T Wave [place]: 226 EKG Severity - ABNORMAL ECG - EKG Impression: A-FLUTTER W/ PREDOM 4:1 AV BLOCK, A-RATE 283 EKG Impression: RIGHT AXIS DEVIATION EKG Impression: CONSIDER LEFT VENTRICULAR HYPERTROPHY EKG Impression: LATERAL INFARCT, AGE INDETERMINATE EKG Impression: BORDERLINE T ABNORMALITIES, INFERIOR LEADS Electronically Signed By: James Joseph 13-Dec-2016 09:00:23
[2016-12-12 14:12] LABS: INR 1.02 (0.83-1.16); PROTIME(PATIENT) 13.3 SEC (12.0-15.0)
[2016-12-12 14:13] LABS: APTT 27.5 SEC (23.0-38.0); CALCIUM 9.1 mg/dL (8.5-10.4); CARBON DIOXIDE 23 mEq/l (22-31); CHLORIDE 106 mEq/L (97-110); CREATININE 0.6 mg/dL (0.6-1.0); GLOMERULAR FILTRATION RATE > 60; GLUCOSE 81 mg/dL (70-100); MAGNESIUM 2.1 mg/dL (1.6-2.3); SODIUM 137 mEq/L (134-144)
[2016-12-12 14:18] LABS: ANION GAP 8 mEq/L (8-16)
[2016-12-12] MEDS ORDERED: PROPOFOL 200 MG/20 ML VIAL ONE ×2 (14:19)
[2016-12-12] MEDS ORDERED: ATROPINE SULFATE 1 MG/10 ML SYR ONE (14:40)
[2016-12-12] MEDS ORDERED: DOPamine/DEXTROSE/250 ML BAG IV ONE (14:43)
[2016-12-12] MEDS ORDERED: EPINEPHrine 1 MG/10 ML SYR IVP ONE (14:49)
[2016-12-12] MEDS ORDERED: ALBUTEROL 60 PUFFS/8 GM MDI IH PRN (17:11)
[2016-12-12] MEDS: MONTELUKAST SODIUM 10 MG TAB PO SCH (18:03)
[2016-12-12] MEDS: APIXABAN 2.5 MG TAB PO SCH (20:41)
[2016-12-12] MEDS: FLUTICASONE/SALMETER 250/50MCG DISKUS IH SCH (22:06)
[2016-12-13] MEDS: MULTIVITAMINS 1 EACH TAB PO SCH (08:02)
[2016-12-13] MEDS: ASPIRIN EC 81 MG TAB PO SCH (08:02)
[2016-12-13] MEDS: VITAMIN B COMPLEX 1 EA CAP/TAB PO SCH (08:02)
[2016-12-13] MEDS: APIXABAN 2.5 MG TAB PO SCH ×2 (08:03→19:58)
[2016-12-13] MEDS: FLUTICASONE/SALMETER 250/50MCG DISKUS IH SCH ×2 (08:03→21:35)
[2016-12-13] MEDS ORDERED: DILTIAZEM CD 120 MG CAP PO ONE (14:00)
--- NOTE | 2016-12-13 15:28 | SOAPPROG ---
[facility] Progress Note Assessment/Plan: 1. PAF - Pt presents with a recent diagnosis of PAF. She was started on a rate control and anticoagulation strategy but was scheduled for ALIE cardioversion secondary to symptoms. ALIE/CV was performed on 12/12/16. Post cardioversion patient was bradycardic with HR in the 30's. ? underlying SSS vs 240 mg of diltiazem. She was temporarily started on dopamine to support her HR. This was weaned off and she has done well overnight. She will likely require diltiazem given her HOCM. Would like to observe patient while this is restarted given risk of SSS. --> Cardizem 120 mg daily. Dose prior to A-fib was 180 mg daily. 2. HTN - Pts BP has increased with DC of diltiazem. Will resume diltiazem as noted above. 3. HOCM - Pt has a HOCM. Her septum is 1.5 to 1.6 cm. No personal or family history of syncope. Pt is not interested in ICD. 12/13/16 15:30 Subjective: No chest pain No orthopnea or PND Fells well No syncope or pre-syncope. HR up to 70's this am. Objective: Vital Signs Temp Pulse Resp BP Pulse Ox 36.6 C 63 17 138/91 H 94 12/13/16 11:47 12/13/16 11:47 12/13/16 11:47 12/13/16 11:47 12/13/16 11:47 Laboratory Results 12/12/16 13:45 12/12/16 12/13/16 12/14/16 05:59 05:59 05:59 Intake Total 200 Output Total 1100 200 Balance -900 -200 PT 13.3 SEC (12.0-15.0) 12/12/16 13:45 INR 1.02 (0.83-1.16) 12/12/16 13:45 Physical Exam - Physical Exam General Appearance: alert, no apparent distress Respiratory: lungs clear Cardiac/Chest: regular rate, rhythm, systolic murmur Abdomen: normal bowel sounds, non-tender, soft Skin: normal color Extremities: No pedal edema Neuro/Psych: alert ICD10 Worksheet Patient Problems: Problems Problem Status Onset Atrial fibrillation Acute
[2016-12-13] MEDS: MONTELUKAST SODIUM 10 MG TAB PO SCH (17:19)
[2016-12-14] MEDS: MULTIVITAMINS 1 EACH TAB PO SCH (08:00)
[2016-12-14] MEDS: ASPIRIN EC 81 MG TAB PO SCH (08:00)
[2016-12-14] MEDS: APIXABAN 2.5 MG TAB PO SCH ×2 (08:00→20:49)
[2016-12-14] MEDS: VITAMIN B COMPLEX 1 EA CAP/TAB PO SCH (08:00)
[2016-12-14] MEDS ORDERED: DILTIAZEM CD 120 MG CAP PO SCH (09:00)
[2016-12-14] MEDS: FLUTICASONE/SALMETER 250/50MCG DISKUS IH SCH ×2 (09:37→20:50)
--- NOTE | 2016-12-14 12:56 | SOAPPROG ---
[facility] Progress Note Assessment/Plan: 1. PAF - Pt presents with a recent diagnosis of PAF. She was started on a rate control and anticoagulation strategy but was scheduled for ALIE cardioversion secondary to symptoms. ALIE/CV was performed on 12/12/16. Post cardioversion patient was bradycardic with HR in the 30's. ? underlying SSS vs 240 mg of diltiazem. She was temporarily started on dopamine to support her HR. On HR increased to the 70s and diltiazem 120 mg started HOCM and elevated BP. Overnight patient was noted to have pauses up to 2.0 seconds. Will DC diltiazem and observe overnight. If HR improves would DC home in am. 2. HTN - BP has increased with DC of diltiazem --> Follow overnight. Consider lisinopril 5 mg daily. 3. HOCM - Pt has a HOCM. Her septum is 1.5 to 1.6 cm. No personal or family history of syncope. Pt is not interested in ICD. Pt may require diltiazem for symptom management. She has not been placed on BB secondary to underlying lung disease. Subjective: No chest pain No syncope or pre-syncope Feels well Objective: Vital Signs Temp Pulse Resp BP Pulse Ox 36.6 C 59 L 18 113/66 90 L 12/14/16 11:59 12/14/16 11:59 12/14/16 11:59 12/14/16 11:59 12/14/16 11:59 Laboratory Results 12/12/16 13:45 12/13/16 12/14/16 12/15/16 05:59 05:59 05:59 Intake Total 200 500 Output Total 1100 1901 Balance -900 -1401 PT 13.3 SEC (12.0-15.0) 12/12/16 13:45 INR 1.02 (0.83-1.16) 12/12/16 13:45 Physical Exam - Physical Exam General Appearance: alert, no apparent distress Respiratory: lungs clear Cardiac/Chest: regular rate, rhythm, systolic murmur Abdomen: normal bowel sounds, non-tender, soft Skin: normal color Extremities: No pedal edema Neuro/Psych: alert ICD10 Worksheet Patient Problems: Problems Problem Status Onset Atrial fibrillation Acute
[2016-12-14] MEDS: MONTELUKAST SODIUM 10 MG TAB PO SCH (17:33)
[2016-12-15 03:46] VITALS: O2SAT 92
[2016-12-15] MEDS ORDERED: ALENDRONATE SODIUM 70 MG TAB PO SCH (07:00)
[2016-12-15] MEDS: FLUTICASONE/SALMETER 250/50MCG DISKUS IH SCH (08:39)
[2016-12-15] MEDS: ASPIRIN EC 81 MG TAB PO SCH (08:59)
[2016-12-15] MEDS: MULTIVITAMINS 1 EACH TAB PO SCH (08:59)
[2016-12-15] MEDS: APIXABAN 2.5 MG TAB PO SCH (08:59)
[2016-12-15] MEDS: VITAMIN B COMPLEX 1 EA CAP/TAB PO SCH (08:59)
[2016-12-15] MEDS ORDERED: LISINOPRIL 5 MG TAB PO SCH (09:00)
[2016-12-15 09:03] VITALS: TEMP 97.6
[2016-12-15 10:36] VITALS: BP 159/100
--- NOTE | 2016-12-15 11:55 | GDS ---
[f rep st] DISCHARGE SUMMARY ADMISSION DIAGNOSES: 1. Paroxysmal atrial fibrillation. 2. Hypertrophic obstructive cardiomyopathy. 3. Asthma. DISCHARGE DIAGNOSES: 1. Paroxysmal atrial fibrillation, status post cardioversion. 2. Cardiac sinus pause. 3. Hypertrophic obstructive cardiomyopathy. 4. Asthma. PROCEDURES DONE DURING HOSPITALIZATION: 1. ALIE. 2. Cardioversion. 3. Electrocardiogram. BRIEF HISTORY: Please see H and P: Mrs. Voss is an 86-year-old female with recently new diagnos is of atrial fibrillation. She had been seen in our office by SHEILA Krishnan, and felt to be an appropriate candidate to undergo ALIE cardioversion. This was set up for her to have done in the [facility] . HOSPITAL COURSE: Patient was admitted to [facility] and prepped for procedure there. Dr. Gray performed a ALIE on patient under sedation with anesthesia, no thrombus noted in atrium, proceeded onto cardio version, with successful conversion out of atrial fibrillation. Unfortunately, the patient was yaw ycardic post cardioversion with heart rates in the 30s. She was also mildly hypotensive, she was st arted on dopamine to support her heart rate and blood pressure. She was admitted to the PCU for ove rnight observation. Throughout the night from the to the 5th, she had been doing well, eventual ly titrating the dobutamine off. It was decided to restart her on diltiazem on the , unfortunate ly throughout the evening, she was noted to have significant pauses up to 2 seconds. On the , th e diltiazem has been discontinued. She had been monitored throughout the evening and today, a rema nuous cardiac monitoring, and she has had no further significant pauses. Unfortunately, her blood p ressure has been increased. We have recently started her on lisinopril 5 mg p.o. daily. Throughout her hospitalization, she has never had any episodes of chest pressure, no other malignant arrhythmi as noted. She has remained in sinus rhythm since cardioversion. She denies any chest pressure or p ain. She has been up and walking in the unit without any symptoms of lightheadedness, near-syncope, or syncopal events. PHYSICAL EXAMINATION: Done today. GENERAL APPEARANCE: A small, well-groomed, female. S he is alert and oriented to person, place, time, and situation. She appears to be under no acute di stress. VITAL SIGNS: Current vital signs are blood pressure of 152/96, heart rate is 66, respirati ons 18, saturating 93%. Temperature of 36.4 degrees Celsius. HEENT: Head is normocephalic. Lips and tongue are pink and moist with no signs of cyanosis. Conjunctivae pink. NECK: Trachea is midl ine, +2 carotid pulses bilateral. No auscultated bruits, no jugular vein distention. RESPIRATORY: Lungs are clear to auscultation, no rhonchi, rales or wheezes. No accessory muscle use, no interco stal muscle retraction noted. CARDIAC: Regular rate, regular rhythm, S1, S2, 3/6 systolic murmur n oted along the left sternal border. No rubs or gallops noted. ABDOMEN: Soft, nontender, bowel gurdeep nds x4 quadrants, no organomegaly, no palpable masses. SKIN: [place], warm, dry, no cyanosis, no club cynthia, no peripheral edema. VASCULAR: +2 carotids bilateral, +2 radials bilateral, +1 dorsal pedal and posterior tibial pulses bilateral. NEURO: Cranial nerves 2-10 remain intact. LABORATORY STUDIES: Her INR on December 12, 2016 was 1.02. Sodium 137, potassium 4.0, chloride 106, CO 2 23, BUN 13, creatinine 0.6, glucose 81, calcium 9.1, magnesium 2.1. STUDIES: ALIE and cardioversion as mentioned above. DISCHARGE DISPOSITION: Patient will be discharged home in fair condition. She has been advised no strenuous activity for the next few days. DISCHARGE MEDICATIONS: Please see discharge med reconciliation sheet. Note that we have discontinu ed her home diltiazem dose at this time, and would like not to start her on any other AV beryl agent s. She has been started on lisinopril at 5 mg p.o. daily. She will need to have a fasting basic me tabolic panel in 7-10 days. DISCHARGE INSTRUCTIONS: Post cardioversion discharge instructions went over with the patient, mikel turcios with recent arrhythmia patient instructed not to drive. We have gone over all her medication, she verbalizes understanding. I have advised her with starting a new blood pressure medication she is to take time with positional changes, she is to notify our office if she develops any palpitation s, lightheadedness, or near-syncope. Or return to the hospital. Our office will call her Saturday an schedule for her to be placed on a 48 hour monitor at that time, and then after completing that sh e will have a followup appointment with Dr. Gray later this week. She has been advised that she s hould not drive until she has followed up with Dr. Gray in the office. At the time of discharge, both patient and her daughter verbalized understanding, and have no further questions. They were to ld if any problems or concerns post discharge, they are to notify our office or return to the hospit al. TIME SPENT: Total time spent on discharge greater than 30 minutes. /[id number]/MODL
--- NOTE | 2016-12-15 12:29 | PDIAF ---
- Diagnosis Code Status: Full Code - Medication Management Discharge Medications: Medications to Continue on Transfer Fluticasone/Salmeter 250/50Mcg [Advair 250/50 (*)] 1 puffs IH BID 08/23/10 [ Last Taken 12/12/16] Montelukast Sodium [Singulair 10 mg (*)] 10 mg PO DAILY@1800 08/23/10 [Last Taken 12/11/16] Albuterol [Proventil Inhaler HFA (*)] 1 - 2 puffs IH DAILY PRN 11/01/15 [Last Taken Unknown] Alendronate Sodium [Fosamax 70 MG (*)] 70 mg PO SA@0700 12/04/16 [Last Taken 09/25] Herbals/Supplements -Info Only 1 ea PO DAILY 12/04/16 [Last Taken Unknown] [place]-3 Fatty Acids [Fish Oil 1000 mg (*)] 1,000 mg PO DAILY 12/04/16 [Last Taken Unknown] Apixaban [Eliquis] 2.5 mg PO BID #60 tab 12/07/16 [Last Taken 12/12/16] Aspirin EC [Aspirin EC 81 mg (*)] 81 mg PO DAILY #0 tab 12/07/16 [Last Taken 01/23] Ibuprofen [Motrin (*)] 600 mg PO DAILY PRN 12/12/16 [Last Taken Unknown] Multivitamins [Multivitamin (*)] 1 each PO DAILY 12/12/16 [Last Taken Unknown] Vitamin B Complex [B Complex] 1 each PO DAILY 12/12/16 [Last Taken Unknown] diphenhydrAMINE [Benadryl 25 MG (*)] 25 mg PO DAILY PRN 12/12/16 [Last Taken Unknown] Lisinopril [Zestril 5 mg (*)] 5 mg PO DAILY #30 tab 12/15/16 [Last Taken Unknown ] Discharge Medications: Refer to the Discharge Home Medication list for PRN reason. - Orders Services needed: Home Care, Registered Nurse, Physical Therapy Home Care Face to Face: I certify that this patient was under my care and that I had the required [id number] encounter meeting the encounter requirements on the discharge day. My findings support the fact that the patient is homebound as defined in CMS Chapter 7 Medicare Benefits Manual 30.1.1, The condition of the patient is such that there exists a normal inability to leave home and consequently, leaving home would require a considerable and taxing effort. Diet Texture: Regular Texture Diet Weigh Patient: weekly - Labs/Radiology BMP Date: 12/21/16 - Follow Up Care Current Providers and Referrals: James Gray MD [Medical Doctor] - ([facility] will call you Saturday to set up a 48 hour Holter monitor and follow-up visit with Dr. Gray.) Hola Ernst MD [Primary Care Provider] -
[2016-12-15 14:18] VITALS: PULSE 72; RESP 18
--- NOTE | 2016-12-18 12:33 | CPEKG ---
Heart Rate: 49 RR Interval: 1224 P-R Interval: 208 QRSD Interval: 88 QT Interval: 480 QTC Interval: 434 P [place]: 85 QRS [place]: 77 T Wave [place]: 246 EKG Severity - ABNORMAL ECG - EKG Impression: SINUS BRADYCARDIA EKG Impression: ABNORMAL T, CONSIDER ISCHEMIA, ANT-LAT LEADS EKG Impression: SINUS BRADYCARDIA HAS REPLACED PRIOR ATRIAL FLUTTER Electronically Signed For: James Joseph 18-Dec-2016 12:35:52
--- NOTE | 2016-12-26 15:41 | ECHO ---
[id number] + + [address] : : [facility] [address] : : [phone] + + Transesophageal Echocardiographic Report + -------+ :Name: PHYLLIS MUÑOZ DStudy Date: 12/12/2016 02:19 PM : : Hospital Admission Number: [id number] Locati on: CVC: :: 1930 Gender: Female : :Age: 86 yrs Race: WH : :Reason For Study: Eval LV Fx : :History: Pre Cardioversion : + -------+ Left Ventricle Proximal septal thickening is noted. The left ventricular ejection fraction is normal. Atria No thrombus is detected in the left atrial appendage. No left atrial mass or thrombus visualized. Mitral Valve There is mild to moderate mitral regurgitation. Conclusion A 2D transesophageal echocardiogram with color flow Doppler was performed. This is a ALIE perfomred prior to DCCV 1. The left ventricle is normal in size and function. The ejection fraction is normal. 2. No left atrial mass or thrombus visualized. 3. No thrombus is detected in the left atrial appendage. 4. There is mild to moderate mitral regurgitation. Final Reading Physician: James rGay MD electronically signed on 12/26/2016 03:39 PM Ordering Physician: James Gray Performed By: James Gray MD
--- NOTE | 2016-12-26 19:25 | CPIP ---
[f rep st] INVASIVE CARDIAC PROCEDURE DATE OF PROCEDURE: 12/12/2016 PROCEDURES: 1. Transesophageal echocardiogram. 2. Synchronized DC cardioversion. INDICATIONS: Symptomatic atrial fibrillation. Consent signed and in front of chart. ANTICOAGULATION: Patient was started on Eliquis for anticoagulation. ALIE was performed to exclude left atrial and left atrial appendage thrombus. ANESTHESIA: Please see Anesthesia report. SPECIFICS: 1. Pads were placed in the anterior-posterior position. 2. Patient was treated with 150 joules synchronized x1. 3. Post cardioversion, patient had a long pause followed by a junctional bradycardia. She was init ially treated with atropine 0.5 mg IV but remained bradycardic. She was then treated with temporary pacemaking, followed by 0.05 mg of epinephrine. After the epinephrine patient developed a sinus rh ythm. As the epinephrine wore off, she developed a sinus bradycardia. She was started on dopamine 5 mcg/kg per minute to maintain her rhythm. This was later weaned off, and patient had a sinus yaw ycardia in the 40s to 50s. COMPLICATIONS: Patient developed a junctional bradycardia post DC cardioversion, likely secondary t o underlying sinus node dysfunction as well as diltiazem used to treat her atrial fibrillation. CONCLUSIONS: Status post DC cardioversion to sinus bradycardia. /[id number]/MODL
== END 2016-12-15 13:00 | disposition home or self-care (01) ==
LOC: FCATH 13:09 → F2W 15:22
PROVIDERS: ADMIT Internal Medicine Cardiovascular Disease; ATTEND Internal Medicine Cardiovascular Disease
PROC: 5A2204Z Restoration of Cardiac Rhythm, Single (ICD-10-PCS; principal; 2016-12-12)
PROC: B245ZZ4 Ultrasonography of Left Heart, Transesophageal (ICD-10-PCS; principal; 2016-12-12)
DX: I48.0 Paroxysmal atrial fibrillation (principal); I42.1 Obstructive hypertrophic cardiomyopathy; I34.0 Nonrheumatic mitral (valve) insufficiency; I36.1 Nonrheumatic tricuspid (valve) insufficiency; J45.909 Unspecified asthma, uncomplicated; M85.80 Other specified disorders of bone density and structure, unspecified site
CPT/HCPCS: 92960; 93005; 93312; G0378; J0461; J1265; J2704

== ENCOUNTER → 2017-03-29 | Outpatient (CLI) | payer OTHER | LOC: FIMAGING 10:33 | PROVIDERS: ATTEND Internal Medicine | DX: Z12.31 Encounter for screening mammogram for malignant neoplasm of breast (principal); Z80.3 Family history of malignant neoplasm of breast | CPT/HCPCS: G0202 ==

== ENCOUNTER 2017-09-23 09:09 | Inpatient (IN) | payer OTHER ==
--- NOTE | 2017-09-22 09:10 | GHP ---
[f rep st] PREOP HISTORY AND PHYSICAL HISTORY: The patient is an 87-year-old female, who presents with severe right knee osteoarthritis. This has resulted in a severe valgus malalignment causing her significant activity limitations, altering her gait. Her malalignment and disability from her arthritis have significantly progressed. X-rays shows a severe right knee osteoarthritis that is tricompartment, most severely so in the lateral compartment resulting in valgus malalignment. A right total knee arthroplasty is planned. PAST MEDICAL HISTORY: Significant. She has a history of asthma, atrial fibrillation, hypertension, as well as hypertrophic obstructive cardiomyopathy. Her dining room host is Dr. James Gray. MEDICATIONS: Include Advair Diskus 250/50 mcg dose inhalation, albuterol sulfate 90 mcg inhaler, alendronate 70 mg, aspirin low-dose 81 mg p.o. daily, Fosamax 70 mg p.o. daily, lisinopril 2.5 mg p.o. daily, montelukast 10 mg p.o. daily, Pradaxa 150 mg p.o. daily. Multiple supplements vitamin B, C, D, calcium , fish oil, TripleFlex. ALLERGIES: She has no known drug allergies. She has stopped her aspirin and Pradaxa appropriately before surgery. Her primary care physician, Dr. Ernst, as well as Dr. Gray have cleared her for surgery. Of course, with the precautions related to her multiple medical problems, including her obstructive cardiomyopathy. REVIEW OF SYSTEMS: Positive for her pulmonary disease, hypertension and cardiac history with arrhythmia, as well as obstructive cardiomyopathy. PHYSICAL EXAM: The patient is a well-developed, well-nourished female in no apparent distress. HEAD AND NECK: Normocephalic, atraumatic. CHEST: Clear. CARDIOVASCULAR: Regular rate and rhythm. ABDOMEN: Soft. NEUROLOGIC: She is alert and oriented x3. Examination of her right lower extremity, the right knee has 15-20 degrees of valgus malalignment. She has a flexion contracture and she is flexing to about 120 degrees. Cruciates appear stable. She has pseudolaxity on testing the collaterals related to her malalignment. She has intact extensor function, active knee extension. Her gait is abnormal, she drops her pelvis on the right side because of the effective shortening of the right lower extremity with valgus malalignment. SKIN/NEUROVASCULAR: Intact. IMPRESSION: Right knee osteoarthritis. PLANS: Right total knee arthroplasty. Benefits and risks of surgery have been reviewed with the patient, including her daughter, who is an anesthesiologist. They both recognize that given her age and medical conditions that this is a riskier surgery. The patient's quality of life has dropped off significantly due to her functional gait problems and progressive malalignment of her leg. She wishes to continue ambulating and remain as active as she can. The patient and her daughter understand the risks include infection, damage to blood vessels or nerves, failure or loosening of components, blood clot in the leg or lung, bleeding and the need for transfusion. She has signed a consent form and wishes to proceed. /[id number]/MODL MTDD
[~2017-09-23 09:09] MED LIST: NS IV ONE; POVIDONE-IODINE 20 ML in SODIUM CL IRRIG SOLUTION 500 ML IRR ONE; ROPIVACAINE 0.2% 80 MG, EPINEPHrine 0.2 MG, KETOROLAC TROMETHAMINE 30 MG in SYRINGE 0 ML IU ONE; TRANEXAMIC ACID IV ONE; ceFAZolin 1 GM/5 ML SYR ONE
[2017-09-23] MEDS ORDERED: LR 1,000 ML IV ONE (09:23)
[2017-09-23] MEDS ORDERED: DEXAMETHASONE 4 MG/ML VIAL IVP ONE (10:00)
[2017-09-23] MEDS ORDERED: ACETAMINOPHEN 325 MG TAB PO ONE (10:00)
[2017-09-23] MEDS ORDERED: FAMOTIDINE 20 MG TAB PO ONE (10:00)
[2017-09-23] MEDS ORDERED: ceFAZolin 2 GM/SWFI 2 GM/20 ML SYR IVP ONE (10:00)
--- NOTE | 2017-09-23 10:49 | PDANEPAE ---
ANE History of Present Illness right knee oa ANE Past Medical History - Cardiovascular History Hx Hypertension: Yes Hx Arrhythmias: Yes Hx Chest Pain: No Hx Coronary Artery / Peripheral Vascular Disease: No Hx CHF / Valvular Disease: No Hx Palpitations: Yes Cardiovascular History Comment: mitral valve insufficency,afib - Pulmonary History Hx Asthma/Reactive Airway Disease: Yes Hx Oxygen in Use at Home: No Hx Sleep Apnea: No Sleep Apnea Screening Result - Last Documented: Positive Pulmonary History Comment: advair - Neurologic History Hx Cerebrovascular Accident: No Hx Seizures: No Hx Dementia: No - Endocrine History Hx Diabetes: No - Renal History Hx Renal Disorders: No - Liver History Hx Hepatic Disorders: No - Neurological & Psychiatric Hx Hx Neurological and Psychiatric Disorders: No - Cancer History Hx Cancer: No - Congenital Disorder History Hx Congenital Disorders: No - GI History Hx Gastrointestinal Disorders: No - Chronic Pain History Chronic Pain: No - Surgical History Prior Surgeries: none ANE Review of Systems Review of Systems: - Exercise capacity METS (RN): 4 METS ANE Patient History - Allergies Allergies/Adverse Reactions: No Known Allergies Allergy (Unverified 11/01/15 10:34) - Home Medications Home Medications: RX: Fluticasone/Salmeter 250/50Mcg [Advair 250/50 (*)] 1 puffs IH BID 08/23/10 [ Last Taken 09/23/17] RX: Montelukast Sodium [Singulair 10 mg (*)] 10 mg PO DAILY@1800 08/23/10 [Last Taken 09/09/17] RX: Alendronate Sodium [Fosamax 70 MG (*)] 70 mg PO SA@0700 12/04/16 [Last Taken 09/17/17] RX: Herbals/Supplements -Info Only 1 ea PO DAILY 12/04/16 [Last Taken 09/17/17] RX: [place]-3 Fatty Acids [Fish Oil 1000 mg (*)] 1,000 mg PO DAILY 12/04/16 [Last Taken 09/17/17] RX: Multivitamins [Multivitamin (*)] 1 each PO DAILY 12/12/16 [Last Taken ] RX: Vitamin B Complex [B Complex] 1 each PO DAILY 12/12/16 [Last Taken 09/17/17] RX: diphenhydrAMINE [Benadryl 25 MG (*)] 25 mg PO DAILY PRN 12/12/16 [Last Taken 09/17/17] Dabigatran Etexilate Mesyl [Pradaxa 150 MG (*)] 150 mg PO BID 08/28/17 [Last Taken 09/17/17] - NPO status NPO Status: no food or drink >8 hours NPO Since - Liquids (Date): 09/23/17 NPO Since - Liquids (Time): 07:30 NPO Since - Solids (Date): 09/22/17 NPO Since - Solids (Time): 19:00 - Smoking Hx Smoking Status: Never smoked - Family Anes Hx Family Hx Anesthesia Complications: none ANE Labs/Vital Signs - Vital Signs Vital Signs: reviewed preoperatively; see RN documention for details Blood Pressure: 156/94 Heart Rate: 73 Respiratory Rate: 14 O2 Sat (%): 98 Height: 162.56 cm Weight: 48.988 kg ANE Physical Exam - Airway Neck exam: FROM Mallampati Score: Class 1 Mouth exam: normal dental/mouth exam - Pulmonary Pulmonary: no respiratory distress - Cardiovascular Cardiovascular: regular rate and rhythym - ASA Status ASA Status: IV ANE Anesthesia Plan Anesthesia Plan: MAC, epidural Regional Anesthesia: adductor canal FNB
[2017-09-23] MEDS ORDERED: PROPOFOL/EMULSION 500 MG/50 ML BOTTLE IV ONE (10:57)
[2017-09-23] MEDS ORDERED: fentaNYL 100 MCG/2 ML INJ ONE (10:58)
[2017-09-23] MEDS ORDERED: fentaNYL 100 MCG/2 ML INJ IVP PRN (12:18)
[2017-09-23] MEDS ORDERED: OXYCODONE/APAP 5/325 TAB PO PRN (12:18)
[2017-09-23] MEDS ORDERED: ONDANSETRON 4 MG/2 ML VIAL IVP PRN ×2 (12:18→13:43)
[2017-09-23] MEDS ORDERED: PROMETHAZINE HCL 25 MG/ML INJ IVP PRN ×2 (12:18→13:43)
[2017-09-23] MEDS ORDERED: PHENYLEPHRINE HCL 100 MCG/ML SYR IVP PRN (12:18)
[2017-09-23] MEDS ORDERED: NALOXONE HCL 0.4 MG/ML INJ IVP PRN (12:18)
[2017-09-23] MEDS ORDERED: CYCLOBENZAPRINE 10 MG TAB PO PRN (13:43)
[2017-09-23] MEDS ORDERED: DIPHENOXYLATE/ATROPINE LOMOTIL 1 TAB PO PRN (13:43)
[2017-09-23] MEDS ORDERED: ONDANSETRON DISINTEGRATING 4 MG TAB PO PRN (13:43)
[2017-09-23] MEDS ORDERED: METOCLOPRAMIDE 10 MG/2 ML VIAL IVP PRN (13:43)
[2017-09-23] MEDS ORDERED: BISACODYL 10 MG SUPP PR PRN (13:43)
[2017-09-23] MEDS ORDERED: diphenhydrAMINE 25 MG CAP PO PRN ×2 (13:43→13:50)
[2017-09-23] MEDS ORDERED: LACTULOSE 20 GM/30 ML UDCUP PO PRN (13:43)
[2017-09-23] MEDS ORDERED: PROMETHAZINE HCL 25 MG SUPPR PR PRN (13:43)
[2017-09-23] MEDS ORDERED: TEMAZEPAM 15 MG CAP PO PRN (13:43)
[2017-09-23] MEDS ORDERED: KETOROLAC 30 MG/1 ML SDV IVP PRN (13:43)
[2017-09-23] MEDS ORDERED: MAGNESIUM HYDROXIDE 30 ML UDCUP PO PRN (13:43)
--- NOTE | 2017-09-23 13:46 | POSTANESTH ---
Post Anesthetic Evaluation Cardiovascular Status: Normal, Stable Respiratory Status: Normal, Stable Level of Consciousness/Mental Status: Can Participate in Eval Pain Control: Adequate, Prn Tx Ordered Nausea/Vomiting Control: Adequate, Prn Tx Ordered Complications Possibly Related to Anesthesia: None Noted
[2017-09-23] MEDS ORDERED: ceFAZolin 2 GM/DEXTROSE 100 ML IV SCH (14:00)
[2017-09-23] MEDS ORDERED: LR 1,000 ML IV SCH (14:00)
--- NOTE | 2017-09-23 14:22 | GOP ---
[f rep st] OPERATIVE REPORT DATE OF OPERATION: 09/23/2017 SURGEON: Ramu Kingsley MD MGMT CONSULTANT: Rex Buenrostro, CSFA, LSA. PREOPERATIVE DIAGNOSIS: Right knee osteoarthritis. POSTOPERATIVE DIAGNOSIS: Right knee osteoarthritis. PROCEDURE PERFORMED: Right total knee arthroplasty. FINDINGS: SPECIMENS: Included excised. ESTIMATED BLOOD LOSS: Minimal. INDICATIONS: The patient is an 87-year-old female, who presents with history, exam and x-rays consis tent with severe valgus malaligned tricompartment right knee osteoarthritis. She has significant fun ctional limitations at this point. Conservative measures have been tried. A total knee arthroplasty is planned. DESCRIPTION OF PROCEDURE: The patient was taken to the operating room, and epidural catheter was elia jazmin. She received preoperative antibiotics, as well as tranexamic acid. She also received an adduct or canal block. A tourniquet was placed high on the right thigh. Right knee was prepped and draped free with chlorhexidine in the usual fashion in neutral rotation. The limb was elevated, exsanguinat ed, and the tourniquet inflated to 275 mmHg. I made a longitudinal incision in the midline, dissecte d through subcutaneous tissue, and used a medial parapatellar arthrotomy. Patella was inverted. I m easured its thickness at about 21 mm. I removed 9 mm of cartilage and bone, and sized the patella to size 32 and drilled peg holes. The trial fit nicely and restored the thickness of the patella. Edg ing osteophytes were removed. The knee was flexed, and I drilled a airplane pilot supervisor hole in the distal femur, p laced an intramedullary alignment brian, and because of her severe valgus alignment and deficiency of t he lateral femoral condyle, I chose 6 degrees of valgus plus 2 extra cut from the distal end for flex ion contracture. I completed the distal cut, sized the femur between a 5 and a 6, and I downsized to a 5 for the femur. I made the appropriate anterior-posterior and chamfer cuts and notch cuts for th is bi-cruciate stabilized knee for a size 5 component which fit nicely. I then exposed the proximal tibia, used extramedullary alignment jig, adjusted for rotation, posterior slope, and appropriate dep th of cut. I made a perpendicular cut on the tibial metaphysis. I sized this to a 4. I dialed in t he rotation, marked this on the tibia, and I completed the preparation of the tibia. All the compone nts were removed. Jet lavage irrigation was used throughout. Cement was applied to the tibia, and t he size 4 component was hammered into place. Cement was applied to the distal femur, and a size 5 co mponent was placed. The 32 patellar component was placed over cement mantle and held with a clamp. I did a series of trial reductions. I found that the 9 mm trial was the best fit. I did some IT ban d and lateral capsular release to help with soft tissue balancing. A size 9 mm thick crosslinked mike y liner was snapped into the tibial tray, and the knee had appropriate alignment, good rollback in fl exion, full extension, and the patella tracked centrally. The knee was irrigated including with Beta dine solution. No drain was required. I closed the arthrotomy with interrupted [id number]-[id number] sutu res of 0 Mersilene. Subcutaneous tissue was closed with 2-0 Monocryl, and the skin with bryant. Th e wound was dressed with Betadine-soaked Adaptic, 4 x 4s, sterile Webril, and a long-leg AZRA stocking was applied. There were no complications. DRAINS: None. COUNTS: All counts correct. The patient was taken in stable condition to recovery. My hand frame surgical elastic knitter, Rex Buenrostro, was a medical necessity for this total joint. SUMMARY OF COMPONENTS: This is a Journey Bi-Cruciate Stabilized Knee, Oxinium femur, all components cemented. The femur is a size 5, the tibia a size 4, patella 32, the articular insert 9 mm thick. /[id number]/MODL
[2017-09-23] MEDS: MONTELUKAST SODIUM 10 MG TAB PO SCH (18:09)
[2017-09-23] MEDS: ACETAMINOPHEN 325 MG TAB PO SCH (18:10)
[2017-09-23] MEDS: SENNOSIDES/DOCUSATE SODIUM TAB PO SCH (19:53)
[2017-09-23] MEDS: DABIGATRAN ETEXILATE MESYL 150 MG CAP PO SCH (19:53)
[2017-09-23] MEDS: FAMOTIDINE 20 MG TAB PO SCH (19:54)
[2017-09-23] MEDS: ceFAZolin 2 GM/DEXTROSE 100 ML IV SCH (19:54)
[2017-09-23] MEDS: FLUTICASONE/SALMETER 250/50MCG DISKUS IH SCH (19:57)
[2017-09-23] MEDS: ASPIRIN 325 MG TAB PO SCH (22:58)
[2017-09-24] MEDS: ACETAMINOPHEN 325 MG TAB PO SCH ×5 (00:25→23:43)
[2017-09-24] MEDS: ceFAZolin 2 GM/DEXTROSE 100 ML IV SCH (03:01)
--- NOTE | 2017-09-24 08:41 | SOAPPROG ---
SOAP Progress Note Assessment/Plan: Assessment: 09/24/17 POD#1 R TKA, pain controlled Hct 30 Plan: 09/24/17 08:39 mobilize, D/C plan to rehab Objective: Vital Signs Temp Pulse Resp BP Pulse Ox 36.6 C 59 L 18 126/62 H 94 09/24/17 08:00 09/24/17 08:00 09/24/17 08:00 09/24/17 08:00 09/24/17 08:00 Laboratory Results 09/24/17 04:53 09/23/17 09/24/17 09/25/17 05:59 05:59 05:59 Intake Total 4500 Output Total 3575 Balance 925 ICD10 Worksheet Patient Problems: Problems Problem Status Onset Atrial fibrillation Acute
[2017-09-24] MEDS ORDERED: Herbals/Supplements -Info Only PO SCH (09:00)
[2017-09-24] MEDS: DABIGATRAN ETEXILATE MESYL 150 MG CAP PO SCH ×2 (09:13→20:01)
[2017-09-24] MEDS: VITAMIN B COMPLEX 1 EA CAP/TAB PO SCH (09:14)
[2017-09-24] MEDS: MULTIVITAMINS 1 EACH TAB PO SCH (09:14)
[2017-09-24] MEDS: ASPIRIN 325 MG TAB PO SCH (09:14)
[2017-09-24] MEDS: POLYETHYLENE GLYCOL 3350 17 GM PKT PO PRN (09:15)
[2017-09-24] MEDS: FAMOTIDINE 20 MG TAB PO SCH ×2 (09:15→20:01)
[2017-09-24] MEDS: FLUTICASONE/SALMETER 250/50MCG DISKUS IH SCH ×2 (10:33→20:06)
--- NOTE | 2017-09-24 11:09 | ASMTCMCOM ---
CM Note CM Note Notes: Pt was contacted prior to surgery for a pre-call, at that time she expressed interest in [facility]. Now pt has has had surgery, PT/OT recs are pending. [facility] does not take pt insurance, she has chosen [facility] as second choice. [facility] was sent referral with clinicals we have, PT/OT written recs will need to be sent eliana. Insurance authorization will be required and at this time [employer] is notoriously slow in providing authorization. CM to follow. D/c plan of care: [facility] when pt medically stable and [employer] provides authorization. Date Signed: 09/24/2017 11:08 AM Electronically Signed By:SANA Kaiser
[2017-09-24] MEDS: SENNOSIDES/DOCUSATE SODIUM TAB PO SCH ×2 (11:31→20:01)
[2017-09-24] MEDS: MONTELUKAST SODIUM 10 MG TAB PO SCH (18:06)
[2017-09-24] MEDS: oxyCODONE IR 5 MG TAB PO PRN (21:30)
[2017-09-25] MEDS: oxyCODONE IR 5 MG TAB PO PRN (05:17)
[2017-09-25] MEDS: ACETAMINOPHEN 325 MG TAB PO SCH ×3 (05:17→17:57)
[2017-09-25] MEDS: SENNOSIDES/DOCUSATE SODIUM TAB PO SCH ×2 (08:06→20:27)
[2017-09-25] MEDS: MULTIVITAMINS 1 EACH TAB PO SCH (08:07)
[2017-09-25] MEDS: FAMOTIDINE 20 MG TAB PO SCH ×2 (08:07→20:27)
[2017-09-25] MEDS: VITAMIN B COMPLEX 1 EA CAP/TAB PO SCH (08:07)
[2017-09-25] MEDS: POLYETHYLENE GLYCOL 3350 17 GM PKT PO PRN (08:08)
[2017-09-25] MEDS: DABIGATRAN ETEXILATE MESYL 150 MG CAP PO SCH ×2 (08:08→20:27)
[2017-09-25] MEDS: FLUTICASONE/SALMETER 250/50MCG DISKUS IH SCH ×2 (08:23→20:28)
--- NOTE | 2017-09-25 13:54 | SOAPPROG ---
SOAP Progress Note Assessment/Plan: Assessment: 09/24/17 POD#1 R TKA, pain controlled Hct 30 09/25/17 2, some drainage, dressing has been changed, Hct 32, mobility improving Plan: 09/24/17 08:39 mobilize, D/C plan to rehab 09/25/17 13:50 09/25/17 13:51 to SNF tomorrow Objective: Vital Signs Temp Pulse Resp BP Pulse Ox 36.4 C 71 16 138/74 H 92 09/25/17 07:34 09/25/17 08:23 09/25/17 08:23 09/25/17 07:34 09/25/17 08:23 Laboratory Results 09/25/17 04:25 09/24/17 09/25/17 09/26/17 05:59 05:59 05:59 Intake Total 4500 1000 200 Output Total 3575 700 Balance 925 300 200 ICD10 Worksheet Patient Problems: Problems Problem Status Onset Atrial fibrillation Acute
[2017-09-25] MEDS: MONTELUKAST SODIUM 10 MG TAB PO SCH (17:57)
[2017-09-26] MEDS: ACETAMINOPHEN 325 MG TAB PO SCH ×5 (01:06→23:58)
--- NOTE | 2017-09-26 07:07 | SOAPPROG ---
SOAP Progress Note Assessment/Plan: Assessment: 09/24/17 POD#1 R TKA, pain controlled Hct 30 09/25/17 2, some drainage, dressing has been changed, Hct 32, mobility improving 09/26/17 3, dressing dry Plan: 09/24/17 08:39 mobilize, D/C plan to rehab 09/25/17 13:50 09/25/17 13:51 to SNF tomorrow 09/26/17 07:06 ok for d/c to SNF Objective: Vital Signs Temp Pulse Resp BP Pulse Ox 36.4 C 82 16 144/88 H 93 09/25/17 23:00 09/25/17 23:00 09/25/17 23:00 09/25/17 23:00 09/25/17 23:00 Laboratory Results 09/25/17 04:25 09/25/17 09/26/17 09/27/17 05:59 05:59 05:59 Intake Total 1000 200 Output Total 700 Balance 300 200 ICD10 Worksheet Patient Problems: Problems Problem Status Onset Atrial fibrillation Acute
--- NOTE | 2017-09-26 07:13 | PDIAF ---
- Diagnosis Diagnosis: right knee osteoarthritis Code Status: Full Code - Medication Management Discharge Medications: Medications to Continue on Transfer Fluticasone/Salmeter 250/50Mcg [Advair 250/50 (*)] 1 puffs IH BID 08/23/10 [ Last Taken 09/23/17] Montelukast Sodium [Singulair 10 mg (*)] 10 mg PO DAILY@1800 08/23/10 [Last Taken 09/09/17] Alendronate Sodium [Fosamax 70 MG (*)] 70 mg PO SA@0700 12/04/16 [Last Taken 05/27] Herbals/Supplements -Info Only 1 ea PO DAILY 12/04/16 [Last Taken 09/17/17] [place]-3 Fatty Acids [Fish Oil 1000 mg (*)] 1,000 mg PO DAILY 12/04/16 [Last Taken 09/17/17] Multivitamins [Multivitamin (*)] 1 each PO DAILY 12/12/16 [Last Taken 09/17/17] Vitamin B Complex [B Complex] 1 each PO DAILY 12/12/16 [Last Taken 09/17/17] diphenhydrAMINE [Benadryl 25 MG (*)] 25 mg PO DAILY PRN 12/12/16 [Last Taken 05/27] Dabigatran Etexilate Mesyl [Pradaxa 150 MG (*)] 150 mg PO BID 08/28/17 [Last Taken 09/17/17] oxyCODONE IR [Oxycodone Ir (*)] 5 - 10 mg PO Q3HRS PRN tab 09/26/17 [Last Taken Unknown] Discharge Medications: Refer to the Discharge Home Medication list for PRN reason. - Orders Services needed: Physical Therapy, Occupational Therapy Diet Recommendation: no restrictions on diet Diet Texture: Regular Texture Diet Emanuel Stockings Discontinue Date: stockings x 2 weeks Wound Care Instructions: keep knee wound covered, clean and dry Sutures/[place] Site: r knee, I will remove at 2 weeks Activity/Weight Bearing Restrictions: WBAT, full ROM, gait training - Follow Up Care Current Providers and Referrals: Hola Ernst MD [Primary Care Provider] -
[2017-09-26] MEDS: MULTIVITAMINS 1 EACH TAB PO SCH (08:08)
[2017-09-26] MEDS: DABIGATRAN ETEXILATE MESYL 150 MG CAP PO SCH ×2 (08:08→20:56)
[2017-09-26] MEDS: FAMOTIDINE 20 MG TAB PO SCH ×2 (08:08→20:56)
[2017-09-26] MEDS: SENNOSIDES/DOCUSATE SODIUM TAB PO SCH ×2 (08:08→20:56)
[2017-09-26] MEDS: VITAMIN B COMPLEX 1 EA CAP/TAB PO SCH (08:08)
[2017-09-26] MEDS: FLUTICASONE/SALMETER 250/50MCG DISKUS IH SCH ×2 (09:19→22:22)
--- NOTE | 2017-09-26 16:51 | ASMTCMCOM ---
CM Note CM Note Notes: To date [employer] has not authorized [facility] (typical for [employer]). Pt was updated. D/c order cancelled and [facility] informed MD. Date Signed: 09/26/2017 04:40 PM Electronically Signed By:SANA Kaiser
[2017-09-26] MEDS: MONTELUKAST SODIUM 10 MG TAB PO SCH (18:57)
[2017-09-27] MEDS: ACETAMINOPHEN 325 MG TAB PO SCH ×4 (05:27→23:16)
[2017-09-27] MEDS: SENNOSIDES/DOCUSATE SODIUM TAB PO SCH ×2 (08:21→20:35)
[2017-09-27] MEDS: FAMOTIDINE 20 MG TAB PO SCH ×2 (08:21→20:36)
[2017-09-27] MEDS: VITAMIN B COMPLEX 1 EA CAP/TAB PO SCH (08:21)
[2017-09-27] MEDS: DABIGATRAN ETEXILATE MESYL 150 MG CAP PO SCH ×2 (08:21→20:35)
[2017-09-27] MEDS: MULTIVITAMINS 1 EACH TAB PO SCH (08:21)
[2017-09-27] MEDS: FLUTICASONE/SALMETER 250/50MCG DISKUS IH SCH ×2 (08:38→20:37)
--- NOTE | 2017-09-27 14:20 | SOAPPROG ---
SOAP Progress Note Assessment/Plan: Assessment: 09/24/17 POD#1 R TKA, pain controlled Hct 30 09/25/17 2, some drainage, dressing has been changed, Hct 32, mobility improving 09/26/17 3, dressing dry 09/27/17 4, overnight developed some proximal medial theigh swelling, some redness, stocking was tight- has improved through day, afeb, does not look cellulitic, is moving knee, pain controlled. Plan: 09/24/17 08:39 mobilize, D/C plan to rehab 09/25/17 13:50 09/25/17 13:51 to SNF tomorrow 09/26/17 07:06 ok for d/c to SNF 09/27/17 14:02 still trying to get insurance for SNF, daughter is aware, ok from Ortho standpoint for d/c Objective: Vital Signs Temp Pulse Resp BP Pulse Ox 36.4 C 78 14 160/90 H 98 09/27/17 07:56 09/27/17 08:40 09/27/17 08:40 09/27/17 07:56 09/27/17 08:40 Laboratory Results 09/25/17 04:25 09/26/17 09/27/17 09/28/17 05:59 05:59 05:59 Intake Total 200 500 500 Balance 200 500 500 ICD10 Worksheet Patient Problems: Problems Problem Status Onset Atrial fibrillation Acute
[2017-09-27] MEDS: MONTELUKAST SODIUM 10 MG TAB PO SCH (17:01)
--- NOTE | 2017-09-27 17:21 | ASMTCMCOM ---
CM Note CM Note Notes: This morning [employer] denied pt SNF request stating pt is "too high functioning." Pt and dghtr Rox ([phone]) upset and request peer to peer. This CM provided Dr. Kingsley the following information for a peer to peer: "A peer to peer may be done by calling [phone] and must take place within 48 hrs (working days) so Saturday PM." Pt dghtr Rox also called [facility] but they told her there is nothing she can do, she has to let the peer to peer process run its course which is an unknown length of time. Pt is being monitored overnight for a hematoma but is likely medically stable for d/c tomorrow. Since the peer to peer process will likely not be resolved over the weekend this CM talked to pt about a d/c home: pt is open to [facility]. A referral was sent to [facility] in [facility], an agency pt had last year. Pt stated her children will "have to" help her. Also talked to dghtr Rox about a d/c home, she wants to know if pt can stay at hospital until peer to peer process is resolved? CM to follow. Date Signed: 09/27/2017 05:19 PM Electronically Signed By:SANA Kaiser
[2017-09-28] MEDS: ACETAMINOPHEN 325 MG TAB PO SCH ×2 (05:32→12:31)
[2017-09-28] MEDS ORDERED: ALENDRONATE SODIUM 70 MG TAB PO SCH (07:00)
[2017-09-28] MEDS: FLUTICASONE/SALMETER 250/50MCG DISKUS IH SCH (08:11)
[2017-09-28 08:16] VITALS: BP 146/87; PULSE 89; RESP 16; TEMP 98; O2SAT 91
[2017-09-28] MEDS: SENNOSIDES/DOCUSATE SODIUM TAB PO SCH (09:17)
[2017-09-28] MEDS: DABIGATRAN ETEXILATE MESYL 150 MG CAP PO SCH (09:17)
[2017-09-28] MEDS: MULTIVITAMINS 1 EACH TAB PO SCH (09:18)
[2017-09-28] MEDS: FAMOTIDINE 20 MG TAB PO SCH (09:18)
[2017-09-28] MEDS: VITAMIN B COMPLEX 1 EA CAP/TAB PO SCH (09:18)
--- NOTE | 2017-09-28 11:48 | SOAPPROG ---
SOAP Progress Note Assessment/Plan: Assessment: 09/24/17 POD#1 R TKA, pain controlled Hct 30 09/25/17 2, some drainage, dressing has been changed, Hct 32, mobility improving 09/26/17 3, dressing dry 09/27/17 4, overnight developed some proximal medial theigh swelling, some redness, stocking was tight- has improved through day, afeb, does not look cellulitic, is moving knee, pain controlled. 09/28/17 5, minimal drainage, dressing changed, she is moving well including stairs Plan: 09/24/17 08:39 mobilize, D/C plan to rehab 09/25/17 13:50 09/25/17 13:51 to SNF tomorrow 09/26/17 07:06 ok for d/c to SNF 09/27/17 14:02 still trying to get insurance for SNF, daughter is aware, ok from Ortho standpoint for d/c 09/28/17 11:45 will d/c home with daughter Rox Objective: Vital Signs Temp Pulse Resp BP Pulse Ox 36.7 C 89 16 146/87 H 91 L 09/28/17 08:00 09/28/17 08:00 09/28/17 08:00 09/28/17 08:00 09/28/17 08:00 Laboratory Results 09/25/17 04:25 09/27/17 09/28/17 09/29/17 05:59 05:59 05:59 Intake Total 500 1090 Balance 500 1090 ICD10 Worksheet Patient Problems: Problems Problem Status Onset Atrial fibrillation Acute
--- NOTE | 2017-09-28 11:57 | PDIAF ---
- Diagnosis Diagnosis: right knee osteoarthritis Code Status: Full Code - Medication Management Discharge Medications: Medications to Continue on Transfer Fluticasone/Salmeter 250/50Mcg [Advair 250/50 (*)] 1 puffs IH BID 08/23/10 [ Last Taken 09/23/17] Montelukast Sodium [Singulair 10 mg (*)] 10 mg PO DAILY@1800 08/23/10 [Last Taken 09/09/17] Alendronate Sodium [Fosamax 70 MG (*)] 70 mg PO SA@0700 12/04/16 [Last Taken 05/27] Herbals/Supplements -Info Only 1 ea PO DAILY 12/04/16 [Last Taken 09/17/17] [place]-3 Fatty Acids [Fish Oil 1000 mg (*)] 1,000 mg PO DAILY 12/04/16 [Last Taken 09/17/17] Multivitamins [Multivitamin (*)] 1 each PO DAILY 12/12/16 [Last Taken 09/17/17] Vitamin B Complex [B Complex] 1 each PO DAILY 12/12/16 [Last Taken 09/17/17] diphenhydrAMINE [Benadryl 25 MG (*)] 25 mg PO DAILY PRN 12/12/16 [Last Taken 05/27] Dabigatran Etexilate Mesyl [Pradaxa 150 MG (*)] 150 mg PO BID 08/28/17 [Last Taken 09/17/17] oxyCODONE IR [Oxycodone Ir (*)] 5 - 10 mg PO Q3HRS PRN tab 09/26/17 [Last Taken Unknown] Acetaminophen [Tylenol 325mg (*)] 650 mg PO Q6HRS tab 09/28/17 [Last Taken Unknown] Discharge Medications: Refer to the Discharge Home Medication list for PRN reason. - Orders Services needed: Registered Nurse, Physical Therapy Diet Recommendation: no restrictions on diet Diet Texture: Regular Texture Diet Emanuel Stockings Discontinue Date: stockings x 2 weeks Wound Care Instructions: keep knee wound covered, clean and dry, dressing change daily until it stays completely dry Sutures/[place] Site: r knee, I will remove at 2 weeks Activity/Weight Bearing Restrictions: WBAT, full ROM, gait training - Follow Up Care Current Providers and Referrals: Hola Ernst MD [Primary Care Provider] -
--- NOTE | 2017-09-28 17:46 | ASDISCHSUM ---
Discharge Information Plan Status:Home with Home Health Medically Cleared to Leave:09/27/2017 Discharge Date:09/27/2017 CM D/C Disposition:Home Health Service ADT D/C Disposition:Home Health Service Projected Discharge Date:09/28/2017 04:00 PM Transportation at D/C:Family Discharge Delay Reason: Follow-Up Date:09/28/2017 04:00 PM Discharge Slot:2 - 12:01 pm - 18:00 pm Final Diagnosis:R TKA Placement Information Referral Type:*Senior Care/SNF Referral ID:[id number] Provider Name: Address 1: Phone Number: Address 2: Fax Number: City: Selection Factors:Insurance Driven State: Referral Type:*Home Health Care Services Referral ID:[id number] Provider Name:[facility] [place] Address 1:[address] Phone Number: Address 2: Fax Number: [facility]:[place] Selection Factors:Patient/Family Choice State:[place] Patient Contact Information Contact Name:FELECIA Relationship:Daughter Address: Work Phone: City: [place] [facility] Phone: State/Zip Code: Email: Financial Information Financial Class:Medicare Advantage Plans Primary Plan Desc:[employer] MEDICARE ADV Primary Plan Number:[id number] Secondary Plan Desc: Secondary Plan Number: Assessment Information [facility] CM Progress Note CM Note CM Note Notes: Pt was contacted prior to surgery for a pre-call, at that time she expressed interest in [facility]. Now pt has has had surgery, PT/OT recs are pending. [facility] does not take pt insurance, she has chosen [facility] as second choice. [facility] was sent referral with clinicals we have, PT/OT written recs will need to be sent eliana. Insurance authorization will be required and at this time [facility] is notoriously slow in providing authorization. CM to follow. D/c plan of care: [facility] when pt medically stable and [employer] provides authorization. Date Signed: 09/24/2017 11:08 AM Electronically Signed By:SANA Kaiser [facility] Progress Note CM Note CM Note Notes: To date [facility] has not authorized [facility] (typical for [employer]). Pt was updated. D/c order cancelled and CTL informed MD. Date Signed: 09/26/2017 04:40 PM Electronically Signed By:SANA Kaiser [facility] Progress Note CM Note CM Note Notes: This morning [facility] denied pt SNF request stating pt is "too high functioning." Pt and dghtr Rox ([phone]) upset and request peer to peer. This CM provided Dr. Kingsley the following information for a peer to peer: "A peer to peer may be done by calling [phone] and must take place within 48 hrs (working days) so Saturday PM." Pt dghtr Rox also called [facility] but they told her there is nothing she can do, she has to let the peer to peer process run its course which is an unknown length of time. Pt is being monitored overnight for a hematoma but is likely medically stable for d/c tomorrow. Since the peer to peer process will likely not be resolved over the weekend this CM talked to pt about a d/c home: pt is open to [facility]. A referral was sent to [facility], an agency pt had last year. Pt stated her children will "have to" help her. Also talked to dghtr Rox about a d/c home, she wants to know if pt can stay at hospital until peer to peer process is resolved? CM to follow. Date Signed: 09/27/2017 05:19 PM Electronically Signed By:SANA Kaiser Case Management Discharge Plan Note Case Management Discharge Discharge Order Complete? Answers: Yes Patient to Obtain Answers: via [facility] [employer] Transportation Arranged Answers: Family/Friends Transport will Pick (Date 09/28/2017 06:00 PM & Time) EMTALA Complete Answers: No Notes: N/A Case Management Transport Answers: No Notes: N/A Form Complete Faxed Final Orders Answers: Yes Notes: via [employer], confirm ed receipt w/ [facility] Agency/Facility Transfer Answers: Yes Notes: via [employer] Report Printed & Faxed to Receiving Agency Family Notified Answers: Yes Notes: Pt notified Discharge Comments Notes: Reviewed chart regarding discharge plan and pt's progress. Spoke w/ NACHO Jack pt wishing to discharge to a SNF. Per prior CM notes, [facility] denied pt approval to go to a SNF. Dr. Kingsley left a message on the Peer to Peer line, but never heard back from [facility]. Per Dr. Kingsley, pt to discharge home with Home Health Care and family support. Met w/ pt to discuss home care options, pt was here in December and discharged w/ [facility]. She wishes to use the same agency again. Call placed to [facility], spoke w/ Annabel. Confirmed [facility] is able to accept and start care on Saturday09/29/17. Pt to receive Physical and Occupational Therapy. Discharge orders and paperwork faxed via [employer]. IM signed by pt, placed in chart. Update provided to pt's dghtr Rox by NACHO Jack. Pt to follow up as directed. CM avail for any further issues or concerns. Discharge Plan: Home with [facility] Date Signed: 09/28/2017 03:09 PM Electronically Signed By:Bianca Calvert RN Intervention Information Intervention Type:*Incorrect Registration Date of Service:09/23/2017 04:05 PM Patient Type:Observation Staff Member:NACHO Conard Kerry Hours: Discipline: Severity: Comment: Intervention Type:*IM-Signed Date of Service:09/28/2017 02:59 PM Patient Type:Inpatient Staff Member:NACHO Calvert Taylor Hours: Discipline: Severity: Comment:
== END 2017-09-28 17:11 | disposition home health service (06) | DRG 470 ==
LOC: F3N 09:09 → INTOOBSV 09:09 → F3N 15:57 → OBSVTOIN 09-24 17:00
PROVIDERS: ADMIT Orthopaedic Surgery; ATTEND Orthopaedic Surgery
PROC: 0SRC0J9 Replacement of Right Knee Joint with Synthetic Substitute, Cemented, Open Approach (ICD-10-PCS; principal; 2017-09-23 10:45)
DX: M17.11 Unilateral primary osteoarthritis, right knee (principal); I10 Essential (primary) hypertension; J44.9 Chronic obstructive pulmonary disease, unspecified; J45.909 Unspecified asthma, uncomplicated; I48.0 Paroxysmal atrial fibrillation
CPT/HCPCS: 97116-GP; 97161-GP; 97166-GO; 97168-GO; 97530-GP; 97535-GO; C1713; G0378; G8978-GP-CJ; G8979-GP-CI; G8980-GP-CI; J0171; J0690; J1100; J1885; J2370; J2704; J2795; J3010

== ENCOUNTER → 2018-11-25 | Outpatient (CLI) | payer OTHER | LOC: FIMAGING 11:53 | PROVIDERS: ATTEND Internal Medicine | DX: Z12.31 Encounter for screening mammogram for malignant neoplasm of breast (principal); Z80.3 Family history of malignant neoplasm of breast ==